=== PATIENT | female | born 1995 | race Caucasian/White ===

== ENCOUNTER 2016-07-25 04:17 | Emergency (ER) | payer BC, OTHER ==
[2016-07-25 04:28] VITALS: BP 129/94
[2016-07-25] MEDS ORDERED: Acetaminophen/oxyCODONE 325-5 MG Tab PO ONE (04:46)
--- NOTE | 2016-07-25 04:57 | EDM.PDOC ---
ED HPI GENERAL MEDICAL PROBLEM - General Chief Complaint: Lower Extremity Injury/Pain Stated Complaint: RIGHT ANKLE HURTS Time Seen by Provider: 07/25/16 04:38 Source of Information: Reports: Patient History Limitations: Reports: No Limitations - History of Present Illness INITIAL COMMENTS - FREE TEXT/NARRATIVE: This is a 21-year-old female. Onset several days ago with right Achilles tendon soreness. It has progressed slowly until this evening it is markedly painful and she cannot move her foot without having increased pain. Apparently this has happened to her in the past but never this severe. She denies any history of trauma to the Achilles tendon she's not been wearing high heels boots that lace up or anything that touches her Achilles tendon. Due to the pain she comes to the ER. She does have some cat scratches on the anterior part of her ankle but that just happened today and this has been hurting for the last several days. No fever no chills no other acute symptoms. The patient denies eating alot of protein or meat but she mccurdy eat alot of sugar that has affected her in the past with tendonitis. Right Ankle Pain Score (Numeric/FACES): 9 - Related Data Allergies Allergy/AdvReac Type Severity Reaction Status Date / Time No Known Allergies Allergy Verified 07/25/16 04:23 Home Meds: Home Meds Acetaminophen/oxyCODONE [Percocet 325-5 MG] 1 tab PO Q8H PRN #15 tablet [Rx] Escitalopram Oxalate 10 mg PO DAILY 07/25/16 [History] Norelgestromin/Ethin.Estradiol [Xulane Patch] 1 patch TRDERM WEEKLY 07/25/16 [ History] Past Medical History - Past Health History Medical/Surgical History: Denies Medical/Surgical History Psychiatric History: Reports: Anxiety, Depression - Past Surgical History HEENT Surgical History: Reports: Myringotomy w Tube(s), Tonsillectomy Social & Family History - Tobacco Use Smoking Status *Q: Never Smoker - Recreational Drug Use Recreational Drug Use: No Review of Systems - Review of Systems Review Of Systems: See Below Constitutional: Denies: Chills, Fever Eyes: Reports: No Symptoms Ears: Reports: No Symptoms Nose: Reports: No Symptoms Mouth/Throat: Reports: No Symptoms Respiratory: Reports: No Symptoms Cardiovascular: Reports: No Symptoms GI/Abdominal: Reports: No Symptoms Genitourinary: Reports: No Symptoms Musculoskeletal: Reports: Other (As per history of present illness) Neurological: Reports: No Symptoms Psychiatric: Reports: No Symptoms ED EXAM, GENERAL - Physical Exam Exam: See Below Exam Limited By: No Limitations General Appearance: Alert, WD/WN, Moderate Distress Eye Exam: Bilateral Eye: Normal Inspection Ears: Normal External Exam Nose: Normal Inspection Throat/Mouth: Normal Inspection, Normal Lips, Normal Voice Head: Normocephalic Neck: Supple Respiratory/Chest: No Respiratory Distress Back Exam: Full Range of Motion Extremities: Other (Her right lower extremity shows some erythema over the Achilles tendon it is very tender to palpation there is no rupture of the tendon there is no defect noted, the cat scratches from the anterior and mildly lateral portion of the ankle but these occurred today where just been hurting for several days, neurovascular is intact in her toes) Neurological: Alert, Oriented Psychiatric: Anxious Skin Exam: Warm, Dry ED TRAUMA EXTREMITY PROCEDURES - Splinting Right Lower Extremity Splint Site: Right ankle Pre-procedure NV status: Normal Post-procedure NV status: Normal Splint Material: Other (4 inch Jarod was placed to the right ankle and foot) Applied & Form Fitted By: Provider Provider Post-Splint Application NV Check: NV Status Normal Complications: No Course - Vital Signs Last Recorded V/S: Last Vital Signs Temp 98.8 F 07/25/16 04:26 Pulse 85 07/25/16 04:26 Resp 18 07/25/16 04:26 BP 129/94 H 07/25/16 04:26 Pulse Ox 98 07/25/16 04:26 - Orders/Labs/Meds Labs: Laboratory Tests 07/25/16 07/25/16 Range/Units 04:59 04:59 WBC 10.35 H (3.98-10.04) K/mm3 RBC 4.30 (3.98-5.22) M/mm3 Hgb 12.7 (11.2-15.7) gm/L Hct 38.1 (34.1-44.9) % MCV 88.6 (79.4-94.8) fl MCH 29.5 (25.6-32.2) pg MCHC 33.3 (32.2-35.5) g/dl RDW Std Deviation 39.3 (36.4-46.3) fL Plt Count 196 (182-369) K/mm3 MPV 12.1 (9.4-12.3) fl Neut % (Auto) 59.1 (34.0-71.1) % Lymph % (Auto) 33.3 (19.3-51.7) % [place] % (Auto) 6.3 (4.7-12.5) % Eos % (Auto) 0.9 (0.7-5.8) Baso % (Auto) 0.3 (0.1-1.2) % Neut # (Auto) 6.12 (1.56-6.13) K/mm3 Lymph # (Auto) 3.45 (1.18-3.74) K/mm3 [place] # (Auto) 0.65 H (0.24-0.36) K/mm3 Eos # (Auto) 0.09 (0.04-0.36) K/mm3 Baso # (Auto) 0.03 (0.01-0.08) K/mm3 Sodium 140 (136-145) mEq/L Potassium 3.3 L (3.5-5.1) mEq/L Chloride 104 (98-107) mEq/L Carbon Dioxide 25 (21-32) mEq/L Anion Gap 14.3 (5-15) BUN 10 (7-18) mg/dL Creatinine 0.7 (0.55-1.02) mg/dL Est Cr Clr Drug Dosing 109.24 mL/min Estimated GFR (MDRD) > 60 (>60) mL/min BUN/Creatinine Ratio 14.3 (14-18) Glucose 93 (74-106) mg/dL Uric Acid 3.0 (2.6-6.0) mg/dL Calcium 8.1 L (8.5-10.1) mg/dL Total Bilirubin 0.3 (0.2-1.0) mg/dL AST 17 (15-37) U/L ALT 19 (14-59) U/L Alkaline Phosphatase 67 (46-116) U/L Total Protein 6.8 (6.4-8.2) g/dl Albumin 3.5 (3.4-5.0) g/dl Globulin 3.3 gm/dL Albumin/Globulin Ratio 1.1 (1-2) Meds: Medications Discontinued Medications Generic Name Dose Route Start Last Admin Trade Name Freq PRN Reason Stop Dose Admin Oxycodone/Acetaminophen 1 tab 07/25/16 04:46 07/25/16 04:51 Percocet 325-5 Mg PO 07/25/16 04:47 1 tab ONETIME ONE Administration - Re-Assessments/Exams Free Text/Narrative Re-Assessment/Exam: 07/25/16 06:08 I spoke to the patient regarding her test results. I do not know why she is having this pain in her Achilles tendon is that it is inflamed. Departure - Departure Time of Disposition: 06:09 Disposition: Home, Self-Care 01 Condition: good Clinical Impression: Right Achilles tendinitis - Discharge Information Prescriptions: Acetaminophen/oxyCODONE [Percocet 325-5 MG] 1 tab PO Q8H PRN #15 tablet PRN Reason: Pain Referrals: Resmha Little BLEACHER LARD [Primary Care Provider] - Forms: ED Department Discharge Additional Instructions: Try to keep the right foot elevated on a pillow, use ice or heat to the Achilles tendon to help with the soreness, take the medicine as needed for pain , if this continues to worsen or the redness over the tendon begins to spread further you need to follow up with your primary care provider, use the crutches to try to stay off the right foot as much as possible, use the Jarod wrap as needed for comfort, return to the ER if needed
[2016-07-25] MEDS ORDERED: Ondansetron 4 MG Tab.DIS PO ONE (06:23)
== END 2016-07-25 06:42 | disposition home or self-care (01) ==
LOC: JD.ED 04:17
DX: M76.61 Achilles tendinitis, right leg (principal); F41.9 Anxiety disorder, unspecified; F32.9 Major depressive disorder, single episode, unspecified; Z96.22 Myringotomy tube(s) status; Z98.890 Other specified postprocedural states; Z79.899 Other long term (current) drug therapy
CPT/HCPCS: 36415; 80053; 84550; 85025; 99284; A9270; 99283

== ENCOUNTER 2018-06-05 21:04 | Emergency (ER) | payer BC ==
[2018-06-05] MEDS ORDERED: Sodium Chloride 0.9% 10 ML Syringe FLUSH PRN (21:22)
[2018-06-05] MEDS ORDERED: HYDROmorphone 1 MG/ML Syringe IVPUSH STA (21:22)
[2018-06-05] MEDS ORDERED: Ondansetron 4 MG/2 ML SDV IVPUSH ONE (21:22)
[2018-06-05] MEDS ORDERED: Sodium Chloride 0.9% 1,000 ML IV SCH (21:30)
--- NOTE | 2018-06-05 21:30 | EDM.PDOC ---
ED HPI GENERAL MEDICAL PROBLEM - General Chief Complaint: Flank Pain Stated Complaint: KIDNEY PAIN AND SICK TO STOMACH Time Seen by Provider: 06/05/18 21:14 Source of Information: Reports: Patient, RN Notes Reviewed History Limitations: Reports: No Limitations - History of Present Illness INITIAL COMMENTS - FREE TEXT/NARRATIVE: Patient is a 23-year-old female who presents to the ED for the evaluation of sudden onset right flank pain. She states that approximately around half hour ago she began to develop a right-sided pain. She states that the pain is stabbing and sharp and sometimes feel as if it is squeezing. She notes this to come and go in waves. She would put the pain at 9 out of 10 when it is at its worst. And 2 out of 10 when it is not present. She denies any fever/chills but does admit to nausea. She states that up until the pain started she felt well otherwise. She herself has never had any pain like this, however her mother has had multiple kidney stones, and a younger brother has also had issues with kidney stones. She states that she is not at this time. She also states it is hard to find a comfortable position to sit in. Right Flank Pain Score (Numeric/FACES): 9 - Related Data Allergies Allergy/AdvReac Type Severity Reaction Status Date / Time No Known Allergies Allergy Verified 07/25/16 04:23 Home Meds: Home Meds Escitalopram Oxalate 10 mg PO DAILY 07/25/16 [History] Past Medical History - Past Health History Medical/Surgical History: Denies Medical/Surgical History Psychiatric History: Reports: Anxiety, Depression - Past Surgical History HEENT Surgical History: Reports: Myringotomy w Tube(s), Tonsillectomy Social & Family History - Tobacco Use Smoking Status *Q: Never Smoker - Caffeine Use Caffeine Use: Reports: Coffee, Energy Drinks, Soda - Recreational Drug Use Recreational Drug Use: No ED ROS GENERAL - Review of Systems Review Of Systems: See Below Constitutional: Denies: Fever, Chills HEENT: Reports: No Symptoms Respiratory: Reports: No Symptoms Cardiovascular: Reports: No Symptoms Endocrine: Reports: No Symptoms GI/Abdominal: Reports: No Symptoms : Reports: No Symptoms, Flank Pain (right). Denies: Discharge, Dysuria, Frequency, Urgency Musculoskeletal: Reports: No Symptoms Skin: Reports: No Symptoms Neurological: Reports: No Symptoms Psychiatric: Reports: No Symptoms Hematologic/Lymphatic: Reports: No Symptoms Immunologic: Reports: No Symptoms ED EXAM, RENAL/ - Physical Exam Exam: See Below Exam Limited By: No Limitations General Appearance: Alert, WD/WN, No Apparent Distress Eye Exam: Bilateral Eye: Normal Inspection Ears: Normal External Exam Nose: Normal Inspection Throat/Mouth: Normal Inspection, Normal Lips, Normal Teeth, Normal Oropharynx, Normal Voice, No Airway Compromise Head: Atraumatic, Normocephalic Neck: Normal Inspection Respiratory/Chest: No Respiratory Distress, Lungs Clear, Normal Breath Sounds, No Accessory Muscle Use, Chest Non-Tender Cardiovascular: Normal Peripheral Pulses, Regular Rate, Rhythm, No Murmur GI/Abdominal: Normal Bowel Sounds, Soft, Non-Tender, No Distention, No Mass Back Exam: Normal Inspection, Full Range of Motion. No: CVA Tenderness (L), CVA Tenderness (R) Extremities: Normal Inspection, Normal Capillary Refill Neurological: Alert, Oriented, Normal Cognition, No Motor/Sensory Deficits Psychiatric: Normal Affect, Normal Mood Skin Exam: Warm, Dry, Intact, Normal Color, No Rash Course - Vital Signs Last Recorded V/S: Last Vital Signs Temp 98.5 F 06/05/18 21:16 Pulse 75 06/05/18 22:55 Resp 16 06/05/18 22:55 BP 123/80 06/05/18 22:55 Pulse Ox 99 06/05/18 22:55 - Orders/Labs/Meds Labs: Laboratory Tests 06/05/18 Range/Units 22:30 Urine Color Yellow (Yellow) Urine Appearance Clear (Clear) Urine pH 6.0 (5.0-8.0) Ur Specific [place] 1.025 (1.005-1.030) Urine Protein Negative (Negative) Urine Glucose (UA) Negative (Negative) Urine Ketones Negative (Negative) Urine Occult Blood Negative (Negative) Urine Nitrite Negative (Negative) Urine Bilirubin Negative (Negative) Urine Urobilinogen 0.2 (0.2-1.0) Ur Leukocyte Esterase 2+ H (Negative) Urine RBC 0-5 (0-5) /hpf Urine WBC 10-20 H (0-5) /hpf Ur Epithelial Cells Not Reportable Ur Squamous Epith Cells 5-10 H (0-5) /hpf Urine Bacteria Moderate H (FEW) /hpf Urine Mucus Moderate H (FEW) /hpf Meds: Medications Discontinued Medications Generic Name Dose Route Start Last Admin Trade Name Jocelin PRN Reason Stop Dose Admin Dicyclomine HCl 20 mg 06/05/18 22:23 06/05/18 22:54 Bentyl PO 06/05/18 22:24 20 mg ONETIME ONE Administration Hydromorphone HCl 1 mg 06/05/18 21:22 06/05/18 21:34 Dilaudid IVPUSH 06/05/18 21:23 0.5 mg ONETIME STA Administration Sodium Chloride 1,000 mls @ 150 mls/hr 06/05/18 21:30 06/05/18 21:33 Normal Saline IV 150 mls/hr ASDIRECTED CATARINA Administration Magnesium Citrate 296 ml 06/05/18 22:23 06/05/18 22:54 Citrate Of Magnesia PO 06/05/18 22:24 296 ml ONETIME ONE Administration Ondansetron HCl 4 mg 06/05/18 21:22 06/05/18 21:32 Zofran IVPUSH 06/05/18 21:23 4 mg ONETIME ONE Administration Sodium Chloride 10 ml 06/05/18 21:22 06/05/18 21:36 Saline Flush FLUSH 10 ml ASDIRECTED PRN Administration Keep Vein Open - Re-Assessments/Exams Free Text/Narrative Re-Assessment/Exam: 06/05/18 21:29 Patient presents to the ED for the evaluation of sudden onset right-sided flank pain. Her clinical presentation is fairly consistent with kidney stone in nature, I have ordered a UA, IV fluids, 1 mg IV Dilaudid, 4 mg IV Zofran, and an abdominal pelvis CT without contrast for further evaluation. 06/05/18 22:[address] is done and reviewed with Dr. Fall. He does not identify any kidney stone on the CT study, however he does comment that she is rather backed up with stool. UA shows trace of leukocyte Estrace, but no blood at this time. We will discharge the patient home with 20 mg Bentyl, and one bottle mag citrate. Departure - Departure Time of Disposition: 22:41 Disposition: Home, Self-Care 01 Condition: Fair Clinical Impression: Constipation Qualifiers: Constipation type: unspecified constipation type Qualified Code(s): K59.00 - Constipation, unspecified - Discharge Information *PRESCRIPTION DRUG MONITORING PROGRAM REVIEWED*: No *COPY OF PRESCRIPTION DRUG MONITORING REPORT IN PATIENT ANGELO: No Instructions: Constipation, Adult, [id number] Referrals: Reshma Little, [employer] [Primary Care Provider] - Forms: ED Department Discharge Additional Instructions: You have been evaluated in the ED tonight for your sudden onset right flank pain. Your workup was unremarkable for kidney stone at this visit, your CT scan did not demonstrate any sign of kidney stone at this time, however it did demonstrate a large amount of stool in your entire colon. You have been given 20 mg dicyclomine, this should help with the intestinal cramping. You have been provided with one bottle of magnesium citrate, please take this in the morning to promote bowel cleanse and provide some relief from constipation symptoms. Going forward from here, you may want to increase your oral fluid intake and fiber intake, you may also take a stool softener like MiraLAX if you should so choose. Please return to the ED if your symptoms should change or worsen.
[2018-06-05] MEDS ORDERED: Dicyclomine 10 MG Cap PO ONE (22:23)
[2018-06-05] MEDS ORDERED: Magnesium Citrate Solution 296 ML Bottle PO ONE (22:23)
[2018-06-05 23:04] VITALS: BP 123/80
--- NOTE | 2018-06-06 07:23 | CT ---
CT abdomen and pelvis Technique: Multiple axial sections were obtained below the upper left kidney inferiorly through the pubic symphysis. Intravenous and oral contrast was not utilized. Study has been performed as a ureteral stone protocol. Comparison: No prior abdominal imaging. Findings: Kidneys show no abnormal calcifications. No ureteral dilatation or ureteral stone is seen. Noncontrast visualized portions of the liver and spleen are within normal limits. Visualized pancreas is within normal limits. Adrenal glands are seen and appear unremarkable. Aorta shows no aneurysm. No retroperitoneal adenopathy or mesenteric abnormalities are seen. No pelvic mass or adenopathy is noted. Small amount of free fluid is seen within the pelvis which is likely physiologic. Mild increased stool seen throughout the colon. No inflammatory change is seen. Bone window settings were reviewed which appear within normal limits for the patient's age. Impression: 1. Mild increased stool throughout the colon. 2. Small amount of free fluid within the pelvis which is believed to be physiologic. 3. No renal calculi, ureteral dilatation or ureteral stone is seen. 4. No acute abnormality is appreciated on noncontrast CT study of the abdomen and pelvis performed as a ureteral stone protocol. Diagnostic code #2 I agree with preliminary report from [facility], finalized on 06/05/18, 11:40 PM Central Time
== END 2018-06-05 23:01 | disposition home or self-care (01) ==
LOC: JD.ED 21:04
DX: K59.00 Constipation, unspecified (principal); F41.9 Anxiety disorder, unspecified; F32.9 Major depressive disorder, single episode, unspecified; Z79.899 Other long term (current) drug therapy
CPT/HCPCS: 74176; 81001; 96361; 96374; 96375; 99284; A9270; J1170; J2405; J7040

== ENCOUNTER 2019-04-11 13:49 | Emergency (ER) | payer BC ==
--- NOTE | 2019-04-11 15:43 | EDM.PDOC ---
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 This started this afternoon at 1330. She is G1 16 weeks gestation with a LNMP of December 26. She had an US at 10 weeks with no problems. She started hurting at work. She did not fall or lift anything. She has no fever, chills, cough, congestion, runny nose, dysuria, hematuria or vaginal bleeding. 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: Other (see below) Other Treatments MICA PLATE LAYER: none Lower Pelvic Pain Score (Numeric/FACES): 2 - Related Data Allergies Allergy/AdvReac Type Severity Reaction Status Date / Time No Known Allergies Allergy Verified 08/30/18 18:50 Home Meds: Home Meds Pnv No.95/Ferrous Fum/Folic AC [ Caplet] 1 tab PO DAILY 04/11/19 [ History] Past Medical History - Past Health History Medical/Surgical History: Denies Medical/Surgical History HEENT History: Reports: None Cardiovascular History: Reports: None Respiratory History: Reports: None Gastrointestinal History: Reports: None Genitourinary History: Reports: None 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: Other (See Below) Other 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 BORING MACHINE OPERATOR FOR METAL History: cysts on overies in past Musculoskeletal History: Reports: None Neurological History: Reports: None Psychiatric History: Reports: Anxiety, Depression Endocrine/Metabolic History: Reports: None Immunologic History: Reports: None Oncologic (Cancer) History: Reports: None Dermatologic History: Reports: None - Infectious Disease History Infectious Disease History: Reports: None - Past Surgical History Head Surgeries/Procedures: Reports: None HEENT Surgical History: Reports: Myringotomy w Tube(s), Tonsillectomy GI Surgical History: Reports: None Oncologic Surgical History: Reports: None Social & Family History - Family History Family Medical History: Noncontributory - Tobacco Use Smoking Status *Q: Never Smoker - Caffeine Use Caffeine Use: Reports: Soda, Tea - Recreational Drug Use Recreational Drug Use: No ED ROS GENERAL - Review of Systems Review Of Systems: See Below Constitutional: Reports: No Symptoms HEENT: Reports: No Symptoms Respiratory: Reports: No Symptoms Cardiovascular: Reports: No Symptoms Endocrine: Reports: No Symptoms GI/Abdominal: Reports: Abdominal Pain. Denies: Nausea, Vomiting : Reports: No Symptoms Musculoskeletal: Reports: No Symptoms ED EXAM, GI/ABD - Physical Exam Exam: See Below Exam Limited By: No Limitations General Appearance: Alert, No Apparent Distress Ears: Normal External Exam Nose: Normal Inspection Throat/Mouth: Normal Inspection Head: Atraumatic, Normocephalic Neck: Normal Inspection Respiratory/Chest: No Respiratory Distress, Lungs Clear, Normal Breath Sounds Cardiovascular: Regular Rate, Rhythm, No Edema, No Murmur GI/Abdominal Exam: Soft, No Organomegaly, No Mass, Tender (Mild lower abdominal pain and gravid uterus between the pelvis and umbilicus) Course - Vital Signs Last Recorded V/S: Last Vital Signs Temp 99.2 F 04/11/19 14:16 Pulse 83 04/11/19 14:16 Resp 20 04/11/19 14:16 BP 116/77 04/11/19 14:16 Pulse Ox 99 04/11/19 14:16 - Orders/Labs/Meds Labs: Laboratory Tests 04/11/19 04/11/19 04/11/19 Range/Units 15:02 15:02 15:50 WBC 8.02 (3.98-10.04) K/mm3 RBC 4.00 (3.98-5.22) M/mm3 Hgb 11.8 D (11.2-15.7) gm/dl Hct 35.7 (34.1-44.9) % MCV 89.3 (79.4-94.8) fl MCH 29.5 (25.6-32.2) pg MCHC 33.1 (32.2-35.5) g/dl RDW Std Deviation 41.7 (36.4-46.3) fL Plt Count 223 (182-369) K/mm3 MPV 11.5 (9.4-12.3) fl Neut % (Auto) 63.2 (34.0-71.1) % Lymph % (Auto) 29.1 (19.3-51.7) % [place] % (Auto) 6.7 (4.7-12.5) % Eos % (Auto) 0.4 L (0.7-5.8) Baso % (Auto) 0.1 (0.1-1.2) % Neut # (Auto) 5.07 (1.56-6.13) K/mm3 Lymph # (Auto) 2.33 (1.18-3.74) K/mm3 [place] # (Auto) 0.54 H (0.24-0.36) K/mm3 Eos # (Auto) 0.03 L (0.04-0.36) K/mm3 Baso # (Auto) 0.01 (0.01-0.08) K/mm3 Sodium 137 (136-145) mEq/L Potassium 3.3 L (3.5-5.1) mEq/L Chloride 105 (98-107) mEq/L Carbon Dioxide 21 (21-32) mEq/L Anion Gap 14.3 (5-15) BUN 10 (7-18) mg/dL Creatinine 0.4 L (0.55-1.02) mg/dL Est Cr Clr Drug Dosing 187.98 mL/min Estimated GFR (MDRD) > 60 (>60) mL/min BUN/Creatinine Ratio 25.0 H (14-18) Glucose 102 (74-106) mg/dL Calcium 8.2 L (8.5-10.1) mg/dL Total Bilirubin 0.2 (0.2-1.0) mg/dL AST 57 H (15-37) U/L ALT 59 (14-59) U/L Alkaline Phosphatase 85 (46-116) U/L Total Protein 6.0 L (6.4-8.2) g/dl Albumin 2.7 L (3.4-5.0) g/dl Globulin 3.3 gm/dL Albumin/Globulin Ratio 0.8 L (1-2) Lipase 155 (73-393) U/L Urine Color Yellow (Yellow) Urine Appearance Clear (Clear) Urine pH 7.0 (5.0-8.0) Ur Specific [place] 1.025 (1.005-1.030) Urine Protein Negative (Negative) Urine Glucose (UA) Negative (Negative) Urine Ketones Negative (Negative) Urine Occult Blood Negative (Negative) Urine Nitrite Negative (Negative) Urine Bilirubin Negative (Negative) Urine Urobilinogen 1.0 (0.2-1.0) Ur Leukocyte Esterase 1+ H (Negative) Urine RBC 0-5 (0-5) /hpf Urine WBC 5-10 H (0-5) /hpf Ur Squamous Epith Cells 5-10 H (0-5) /hpf Urine Bacteria Many H (FEW) /hpf Urine Mucus Rare (FEW) /hpf - Re-Assessments/Exams Free Text/Narrative Re-Assessment/Exam: 04/11/19 15:43 I ordered labs, UA and an OB US. 04/11/19 16:49 Her CBC is negative. Her K is a little low at 3.3. Her creatinine is low at 0.4. Her AST is slightly elevated at 57. Her lipase is normal. Her US shows no UTI. Her US shows single intrauterine fetus currently breech in presentation. Dates as noted above. No complicating process is seen by US at this time. 04/11/19 16:57 Heart rate was 142. Measures 16 weeks and 1 day. Departure - Departure Time of Disposition: 17:00 Disposition: Home, Self-Care 01 Condition: Good Clinical Impression: Lower abdominal pain Qualifiers: Weeks of gestation: 16 weeks Qualified Code(s): Z3A.16 - 16 weeks gestation of - Discharge Information *PRESCRIPTION DRUG MONITORING PROGRAM REVIEWED*: Not Applicable *COPY OF PRESCRIPTION DRUG MONITORING REPORT IN PATIENT ANGELO: Not Applicable Referrals: Florecita Becker MD [Primary Care Provider] - 3 Days Forms: ED Department Discharge, ED Return to Work/School Form Additional Instructions: Drink plenty of fluids. Take tylenol for any pain. Follow up with your doctor within the week. Please return if you are worse. Sepsis Event Note - Evaluation Sepsis Screening Result: No Definite Risk - Focused Exam Vital Signs: Vital Signs Temp Pulse Resp BP Pulse Ox 04/11/19 14:16 99.2 F 83 20 116/77 99 Date Exam was Performed: 04/11/19 Time Exam was Performed: 16:57
--- NOTE | 2019-04-11 16:39 | US ---
Obstetrical ultrasound: Multiple real-time images were obtained transabdominally. Comparison: Previous obstetrical ultrasound of 02/27/19. Dates: LMP: LMP given as 12/26/18, LYNDA 10/02/19, gestational age 15 weeks 1 day Current ultrasound: LYNDA 09/25/19, gestational age 16 weeks 1 day Earliest ultrasound (02/27/19): LYNDA 09/28/19, gestational age 15 weeks 5 days presentation: Breech Placenta: Anterior with no findings of placenta previa or placental abruption Amniotic fluid: TASNEEM 11.7 cm Measurements: BPD: 3.23 cm - 16 weeks 1 day Head circumference: 12.07 cm - 16 weeks 1 day Abdominal circumference: 10.68 cm - 16 weeks 5 days Femur length: 1.80 cm - 15 weeks 3 days Estimated weight: 142 g (0 lbs. 5 oz.), estimated weight at the 32nd percentile for age by current ultrasound Heart rate: 142 bpm Cervical length: 4.0 cm Impression: 1. Single intrauterine fetus currently breech in presentation. Dates as noted above. 2. No complicating process is seen by ultrasound at this time. Diagnostic code #1 This report was dictated in [place] Standard Time
[2019-04-11 17:17] VITALS: BP 107/62; PULSE 73
== END 2019-04-11 17:15 | disposition home or self-care (01) ==
LOC: JD.ED 13:49
DX: O99.89 Other specified diseases and conditions complicating pregnancy, childbirth and the puerperium (principal); R10.2 Pelvic and perineal pain; Z3A.16 16 weeks gestation of pregnancy
CPT/HCPCS: 36415; 76815; 76815-26; 80053; 81001; 83690; 85025; 99282; 99284-25

== ENCOUNTER 2019-09-11 13:22 | Inpatient (IN) | payer BC ==
[2019-09-11] MEDS ORDERED: Ondansetron 4 MG/2 ML SDV IVPUSH PRN (14:11)
[2019-09-11] MEDS ORDERED: Calcium Carbonate 500 MG Tab.Chew PO PRN (14:11)
[2019-09-11] MEDS ORDERED: Sodium Chloride 0.9% 10 ML Syringe FLUSH PRN (14:11)
[2019-09-11] MEDS ORDERED: Nalbuphine 10 MG/ML Syringe IVPUSH PRN (14:11)
[2019-09-11] MEDS ORDERED: Acetaminophen 325 MG Tab PO PRN (14:11)
[2019-09-11] MEDS ORDERED: Oxytocin/Lactated Ringers 10 UNIT/1,000 ML BAG IV SCH ×2 (14:15)
[2019-09-11] MEDS ORDERED: Lactated Ringers 1,000 ML IV SCH (14:15)
--- NOTE | 2019-09-11 18:58 | PCM.LDHP ---
L&D History of Present Illness - General Date of Service: 09/11/19 Admit Problem/Dx: Patient Status Order with Admit Dx/Problem 09/11/19 14:11 Patient Status [ADT] Routine 09/11/19 14:27 Patient Status [ADT] Stat Admission Diagnosis/Problem Admission Diagnosis/Problem 09/11/19 18:49 Preeclampsia Early labor Source of Information: Patient History Limitations: Reports: No Limitations - History of Present Illness Introduction:: 24 year old at 37 weeks gestation today. She was seen in the clinic and reported that she was having painful tightenings last night for about an hour and then they seemed to settle, but didn't sleep well last night. She has had increased allergy symptoms with nasal congestion, sinus pressure. She had taken benadryl last night for the allergy symptoms. Her bp in the clinic today was elevated, 143/96, which is new for her. She had also noticed increased swelling in her feet. Denies headache, some nausea, but no RUQ pain. When I examined her in the clinic, she was 5-6 cm dilated, 80% effaced and bulging membranes with vertex presentation. I sent her over to Labor and Delivery for monitoring. She has had mild anemia with her , has been treated for bacterial vaginosis. She has declined Tdap and Influenza vaccine with her and does NOT plan to immunize her baby. labs show blood type A+ with negative antibody screen, pap was wnl, infectious disease screening tests negative. 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 MSAFP test for NTD was negative. 1 hour glucola was wnl. GBS swab was negative last week. - Related Data Allergies/Adverse Reactions: Allergies Allergy/AdvReac Type Severity Reaction Status Date / Time No Known Allergies Allergy Verified 09/11/19 15:39 Home Medications: Home Meds Pnv No.95/Ferrous Fum/Folic AC [ Caplet] 1 tab PO DAILY 04/11/19 [History] Ferrous Sulfate [Iron] 325 mg PO DAILY 09/11/19 [History] Melatonin 10 mg PO QPM PRN 09/11/19 [History] Past Medical History - Past Health History Medical/Surgical History: Denies Medical/Surgical History HEENT History: Reports: None Cardiovascular History: Reports: None Respiratory History: Reports: None Gastrointestinal History: Reports: None Genitourinary History: Reports: None 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 (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) Other OB/BYN History: cysts on overies in past Musculoskeletal History: Reports: None Neurological History: Reports: None Psychiatric History: Reports: Anxiety, Depression Other Psychiatric History: was on lexapro pre- Endocrine/Metabolic History: Reports: None Hematologic History: Reports: Anemia Immunologic History: Reports: None Oncologic (Cancer) History: Reports: None Dermatologic History: Reports: None - Infectious Disease History Infectious Disease History: Reports: None - Past Surgical History Head Surgeries/Procedures: Reports: None HEENT Surgical History: Reports: Myringotomy w Tube(s), Tonsillectomy GI Surgical History: Reports: None Oncologic Surgical History: Reports: None Social & Family History - Family History Family Medical History: Noncontributory - Tobacco Use Smoking Status *Q: Never Smoker Second Hand Smoke Exposure: No - Caffeine Use Caffeine Use: Reports: None - Recreational Drug Use Recreational Drug Use: No H&P Review of Systems - Review of Systems: Review Of Systems: See Below General: Reports: No Symptoms HEENT: Reports: Post Nasal Drip, Sinus Congestion Pulmonary: Reports: No Symptoms Cardiovascular: Reports: No Symptoms Gastrointestinal: Reports: No Symptoms Genitourinary: Reports: No Symptoms Musculoskeletal: Reports: No Symptoms Skin: Reports: No Symptoms Psychiatric: Reports: Anxiety Neurological: Reports: No Symptoms Hematologic/Lymphatic: Reports: No Symptoms Immunologic: Reports: Seasonal Allergy L&D Exam - Exam Exam: See Below - Vital Signs Vital Signs: Last Vital Signs Temp 36.6 C 09/11/19 14:11 Pulse 88 09/11/19 14:11 Resp 14 09/11/19 14:11 BP 141/93 H 09/11/19 14:11 Pulse Ox 94 L 09/11/19 14:11 Weight: 68.175 kg - OB Specific Contraction Duration (sec): 40 secs to 5 minutes Contraction Frequency (min): Irregular Contraction Intensity: Moderate Movement: Active Heart Tones: Present Heart Tones per Min: 150 Heart Rate (FHR) Variability: Moderate (6-25 bmp) Estimated Weight: 7 lbs - Maher Score Maher Score Cervix Position: Midposition Maher Score Consistency: Soft Maher Score Effacement: >80% Maher Score Dilation: > 5 cm Maher Score Infant's Station: -1 ,0 Maher Score Total: 11 - Exam General: Alert, Oriented, Mild Distress HEENT: Conjunctiva Clear Neck: Supple, Trachea Midline Lungs: Normal Respiratory Effort Cardiovascular: Regular Rate, Regular Rhythm GI/Abdominal Exam: Normal Bowel Sounds Rectal Exam: Deferred Genitourinary: Cervical dilitation, Enlarged uterus Back Exam: Normal Inspection, Full Range of Motion Extremities: Normal Inspection, Pedal Edema (1+ edema in feet) Skin: Warm, Dry, Intact Psychiatric: Alert, Anxious - Patient Data Lab Results Last 24 hrs: Laboratory Results - last 24 hr 09/11/19 09/11/19 09/11/19 Range/Units 14:28 14:28 14:44 WBC 11.49 H (3.98-10.04) K/mm3 RBC 4.24 (3.98-5.22) M/mm3 Hgb 12.4 (11.2-15.7) gm/dl Hct 37.9 (34.1-44.9) % MCV 89.4 (79.4-94.8) fl MCH 29.2 (25.6-32.2) pg MCHC 32.7 (32.2-35.5) g/dl RDW Std Deviation 45.7 (36.4-46.3) fL Plt Count 165 L (182-369) K/mm3 Neut % (Auto) 78.9 H (34.0-71.1) % Lymph % (Auto) 11.6 L (19.3-51.7) % [place] % (Auto) 8.4 (4.7-12.5) % Eos % (Auto) 0.1 L (0.7-5.8) Baso % (Auto) 0.3 (0.1-1.2) % Neut # (Auto) 9.08 H (1.56-6.13) K/mm3 Lymph # (Auto) 1.33 (1.18-3.74) K/mm3 [place] # (Auto) 0.96 H (0.24-0.36) K/mm3 Eos # (Auto) 0.01 L (0.04-0.36) K/mm3 Baso # (Auto) 0.03 (0.01-0.08) K/mm3 Manual Slide Review Abnormal smear Sodium 136 (136-145) mEq/L Potassium 4.0 (3.5-5.1) mEq/L Chloride 103 (98-107) mEq/L Carbon Dioxide 21 (21-32) mEq/L Anion Gap 16.0 H (5-15) BUN 8 (7-18) mg/dL Creatinine 0.6 (0.55-1.02) mg/dL Est Cr Clr Drug Dosing TNP Estimated GFR (MDRD) > 60 (>60) mL/min BUN/Creatinine Ratio 13.3 L (14-18) Glucose 68 L (74-106) mg/dL Calcium 9.3 (8.5-10.1) mg/dL Total Bilirubin 0.3 (0.2-1.0) mg/dL AST 18 (15-37) U/L ALT 17 (14-59) U/L Alkaline Phosphatase 210 H (46-116) U/L Total Protein 6.8 (6.4-8.2) g/dl Albumin 2.6 L (3.4-5.0) g/dl Globulin 4.2 gm/dL Albumin/Globulin Ratio 0.6 L (1-2) Ur Random Creatinine (30.0-125.0) mg/dL U Random Total Protein (0.0-11.8) mg/dL Protein/Creatinin Ratio (0-149) mg/g COVID-19 (LIDIA) Negative (NEGATIVE) 09/11/19 Range/Units 16:05 WBC (3.98-10.04) K/mm3 RBC (3.98-5.22) M/mm3 Hgb (11.2-15.7) gm/dl Hct (34.1-44.9) % MCV (79.4-94.8) fl MCH (25.6-32.2) pg MCHC (32.2-35.5) g/dl RDW Std Deviation (36.4-46.3) fL Plt Count (182-369) K/mm3 Neut % (Auto) (34.0-71.1) % Lymph % (Auto) (19.3-51.7) % [place] % (Auto) (4.7-12.5) % Eos % (Auto) (0.7-5.8) Baso % (Auto) (0.1-1.2) % Neut # (Auto) (1.56-6.13) K/mm3 Lymph # (Auto) (1.18-3.74) K/mm3 [place] # (Auto) (0.24-0.36) K/mm3 Eos # (Auto) (0.04-0.36) K/mm3 Baso # (Auto) (0.01-0.08) K/mm3 Manual Slide Review Sodium (136-145) mEq/L Potassium (3.5-5.1) mEq/L Chloride (98-107) mEq/L Carbon Dioxide (21-32) mEq/L Anion Gap (5-15) BUN (7-18) mg/dL Creatinine (0.55-1.02) mg/dL Est Cr Clr Drug Dosing Estimated GFR (MDRD) (>60) mL/min BUN/Creatinine Ratio (14-18) Glucose (74-106) mg/dL Calcium (8.5-10.1) mg/dL Total Bilirubin (0.2-1.0) mg/dL AST (15-37) U/L ALT (14-59) U/L Alkaline Phosphatase (46-116) U/L Total Protein (6.4-8.2) g/dl Albumin (3.4-5.0) g/dl Globulin gm/dL Albumin/Globulin Ratio (1-2) Ur Random Creatinine 113.3 (30.0-125.0) mg/dL U Random Total Protein 154.1 H (0.0-11.8) mg/dL Protein/Creatinin Ratio 1360.1 H (0-149) mg/g COVID-19 (LIDIA) (NEGATIVE) Result Diagrams: 09/11/19 14:28 09/11/19 14:28 - Problem List (1) 37 weeks gestation of SNOMED Code(s): 69492422 ICD Code: Z3A.37 - 37 WEEKS GESTATION OF Status: Acute Current Visit: Yes (2) Preeclampsia SNOMED Code(s): 562738576 ICD Code: O14.90 - UNSPECIFIED PRE-ECLAMPSIA, UNSPECIFIED TRIMESTER Status: Acute Current Visit: Yes (3) Environmental allergies SNOMED Code(s): 234338267 ICD Code: Z91.09 - OTH ALLERGY STATUS, OTH THAN TO DRUGS AND BIOLG SUBSTANCES Status: Acute Current Visit: Yes Problem List Initiated/Reviewed/Updated: Yes Orders Last 24hrs: Active Orders 24 hr Category Date Time Status Patient Status [ADT] Stat ADT 09/11/19 14:27 Active Activity as Tolerated [RC] PFP Care 09/11/19 14:11 Active Communication Order [RC] ASDIRECTED Care 09/11/19 14:11 Active Heart Tones [RC] ASDIRECTED Care 09/11/19 14:12 Active Notify Provider [RC] PFP Care 09/11/19 14:11 Active Notify Provider [RC] PRN Care 09/11/19 14:11 Active Peripheral IV Care [RC] . DIRECTED Care 09/11/19 14:12 Active Urinary Catheter Assessment [RC] ASDIRECTED Care 09/11/19 14:11 Active Vital Signs [RC] PER UNIT ROUTINE Care 09/11/19 14:11 Active Regular Diet [DIET] Diet 09/11/19 Dinner Active RAPID PLASMA REAGIN,RPR [CHEM] Routine Lab 09/11/19 14:28 Received Acetaminophen [Tylenol] Med 09/11/19 14:11 Active 650 mg PO Q4H PRN Calcium Carbonate [Tums] Med 09/11/19 14:11 Active 1,000 mg PO Q2H PRN Lactated Ringers [Ringers, Lactated] 1,000 ml Med 09/11/19 14:15 Active IV ASDIRECTED Lidocaine 1% [Xylocaine 1%] Med 09/11/19 19:00 Once 50 ml INJECT ONETIME ONE Nalbuphine [Nubain] Med 09/11/19 14:11 Active 10 mg IVPUSH Q2H PRN Ondansetron [Zofran] Med 09/11/19 14:11 Active 4 mg IVPUSH Q4H PRN Oxytocin/Lactated Ringers [Pitocin in LR 10 Units/1,000 Med 09/11/19 14:15 Active ML] 10 unit in 1,000 ml IV .CONTINUOUS Oxytocin/Lactated Ringers [Pitocin in LR 10 Units/1,000 Med 09/11/19 14:15 Active ML] 10 unit in 1,000 ml IV TITRATE Sodium Chloride 0.9% [Saline Flush] Med 09/11/19 14:11 Active 10 ml FLUSH ASDIRECTED PRN Electronic Heart Tones Ext w TOCO [WOMSER] Oth 09/11/19 14:11 Ordered Routine Electronic Heart Tones Internal [WOMSER] Per Unit Oth 09/11/19 14:11 Ordered Routine Peripheral IV Insertion Adult [OM.PC] Routine Oth 09/11/19 14:11 Ordered Resuscitation Status Routine Resus Stat 09/11/19 14:11 Ordered Medication Orders Acetaminophen (Tylenol) 650 mg PO Q4H PRN PRN Reason: Pain (Mild 1-3) and fever Calcium Carbonate/Glycine (Tums) 1,000 mg PO Q2H PRN PRN Reason: Indigestion Oxytocin/Lactated Ringer's (Pitocin In Lr 10 Units/1,000 Ml) 10 unit in 1,000 mls @ 12 mls/hr IV TITRATE CATARINA; Protocol Oxytocin/Lactated Ringer's (Pitocin In Lr 10 Units/1,000 Ml) 10 unit in 1,000 mls @ 100 mls/hr IV .CONTINUOUS CATARINA; Protocol Lactated Ringer's (Ringers, Lactated) 1,000 mls @ 100 mls/hr IV ASDIRECTED CATARINA Lidocaine HCl (Xylocaine 1%) 50 ml INJECT ONETIME ONE Stop: 09/11/19 19:01 Nalbuphine HCl (Nubain) 10 mg IVPUSH Q2H PRN PRN Reason: Pain Ondansetron HCl (Zofran) 4 mg IVPUSH Q4H PRN PRN Reason: Nausea/Vomiting Sodium Chloride (Saline Flush) 10 ml FLUSH ASDIRECTED PRN PRN Reason: Keep Vein Open Assessment/Plan Comment:: 24 year old primip at 37 weeks, GBS negative, cervix 5 cm dilated in the clinic and elevated bp. Labs today show mild thrombocytopenia, positive urine protein to creatinine ratio and bp has continued to be elevated, 135-150/90's. She has onset of preeclampsia without severe features at this time. She is not having regular contractions, and no change to the cervix in about 6 hours so AROM was performed to augment/induce labor. Clear fluid drained. If contractions do not get into a better pattern, will start pitocin IV . Monitor bp and consider starting magnesium infusion for seizure prophylaxis. She plans to breastfeed. Does not plan to immunize baby and does not want erythromycin eye ointment or vitamin K IM. Will discuss these further.
[2019-09-11] MEDS ORDERED: Lidocaine 1% 50 ML MDV INJECT ONE (19:00)
[2019-09-11] MEDS ORDERED: Witch Hazel Medicated Pads 40/Jar TOP PRN (22:40)
[2019-09-11] MEDS ORDERED: Docusate Sodium 100 MG Cap PO PRN (22:40)
[2019-09-11] MEDS ORDERED: Benzocaine/Menthol 20%-0.5% Spray 56 GM Canister TOP PRN (22:40)
[2019-09-11] MEDS ORDERED: Hydrocortisone Acetate 25 MG Supp RECTAL PRN (22:40)
--- NOTE | 2019-09-11 22:42 | PCM.DEL ---
L & D Note - General Info Date of Service: 09/11/19 Mother's Due Date: 10/02/19 - Delivery Note Labor: Spontaneous, Augmented by ARM Delivery Outcome: Livebirth Delivery Method: Spontaneous Vaginal Delivery-Single Delivery Mode: Spontaneous Presentation: Left Occiput Anterior (ELOY) Nuchal Cord: None Prep: Povidone-Iodine (Betadine Anesthesia Type: None Amniotic Fluid Description: Clear Episiotomy Type: None Laceration: 2nd Degree Suture type: Vicryl Suture size: 3-0 Placenta: Intact, Spontaneous Cord: 3 Vessels Estimated Blood Loss: 100 Resuscitation Needed: No : Suctioned, Bulb Syringe, Stimulated, Warmed, [place] Used Provider: Florecita Becker Score 1 min: 8 Score 5 min: 9 Delivery Comments (Free Text/Narrative):: 24 year old at 37 weeks gestation today. She was seen in the clinic and reported that she was having painful tightenings last night for about an hour an d then they seemed to settle, but didn't sleep well last night. She has had increased allergy symptoms with nasal congestion, sinus pressure. She had taken benadryl last night for the allergy symptoms. Her bp in the clinic today was elevated, 143/96, which is new for her. She had also noticed increased swelling in her feet. Denies headache, some nausea, but no RUQ pain. When I examined her in the clinic, she was 5-6 cm dilated, 80% effaced and bulging membranes with vertex presentation. I sent her over to Labor and Delivery for monitoring. She has had mild anemia with her , has been treated for bacterial vaginosis. She has declined Tdap and Influenza vaccine with her and does NOT plan to immunize her baby. labs show blood type A+ with negative antibody screen, pap was wnl, infectious disease screening tests negative. 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 MSAFP test for NTD was negative. 1 hour glucola was wnl. GBS swab was negative last week. She was only having very irregular contractions, but were moderate when they did come. She had a few contractions that lasted for 5 minutes. When I checked her at 1845, cervix was still 5-6 cm dilated, 80% effaced, vertex and station -1. Her bp has continued to be elevated, 140-150/90/100 and urine protein to creatinine ratio was positive. Platelets were a bit low but liver enzymes normal. Reflexes normal. AROM was performed to augment labor due to her preeclampsia. Contractions increased after that and she did receive Nubain dose at 2030. She started feeling some pressure about 2100 and she was 9 cm and they called me back in. When I arrived and checked her she was completely dilated. WE got her set up and started pushing at 2130. She did well and head was delivered from ELOY presentation, no nuchal cord. The rest of the baby delivered without problems. Time of delivery was 2143 and baby girl. She was dried and stimulated and she cried immediately. She was placed on mother's abdomen for further drying, suctioning and stimulation. After the cord stopped pulsating, it was clamped and cut and baby was placed skin to skin on mother's chest. Her weight was 7 lb 1 oz, 3200 grams. Placenta delivered spontaneously and there were 3 vessels in the cord. EBL was 100 ml. There was a second degree perineal laceration that was repaired in the usual manner with 3-0 vicryl. Uterus was firm and 2 fingers below U. Both Mom and baby were left in the delivery room in stable condition. Mom plans to breastfeed. Induction Criteria - Augmentation Estimated Pelvis: Reports: Adequate Weight Estimated:: Reports: AGA Estimated Weight if LGA: 3.175 kg Reassuring Monitoring Strip: Yes Absence of Tachy Systole: Yes - General Info Date of Service: 09/11/19 Admission Dx/Problem (Free Text): Patient Status Order with Admit Dx/Problem 09/11/19 14:11 Patient Status [ADT] Routine 09/11/19 14:27 Patient Status [ADT] Stat Admission Diagnosis/Problem Admission Diagnosis/Problem 09/11/19 18:49 Preeclampsia Early labor Functional Status: Reports: Pain Controlled - Review of Systems General: Reports: No Symptoms HEENT: Reports: No Symptoms Pulmonary: Reports: No Symptoms Cardiovascular: Reports: No Symptoms Gastrointestinal: Reports: No Symptoms Genitourinary: Reports: No Symptoms Musculoskeletal: Reports: No Symptoms Skin: Reports: No Symptoms Neurological: Reports: No Symptoms Psychiatric: Reports: No Symptoms - Patient Data Vitals - Most Recent: Last Vital Signs Temp 36.6 C 09/11/19 14:11 Pulse 88 07/20/20 14:11 Resp 14 09/11/19 14:11 BP 141/93 H 09/11/19 14:11 Pulse Ox 94 L 09/11/19 14:11 Weight - Most Recent: 68.175 kg Lab Results Last 24 Hours: Laboratory Results - last 24 hr 09/11/19 09/11/19 09/11/19 Range/Units 14:28 14:28 14:28 WBC 11.49 H (3.98-10.04) K/mm3 RBC 4.24 (3.98-5.22) M/mm3 Hgb 12.4 (11.2-15.7) gm/dl Hct 37.9 (34.1-44.9) % MCV 89.4 (79.4-94.8) fl MCH 29.2 (25.6-32.2) pg MCHC 32.7 (32.2-35.5) g/dl RDW Std Deviation 45.7 (36.4-46.3) fL Plt Count 165 L (182-369) K/mm3 Neut % (Auto) 78.9 H (34.0-71.1) % Lymph % (Auto) 11.6 L (19.3-51.7) % [place] % (Auto) 8.4 (4.7-12.5) % Eos % (Auto) 0.1 L (0.7-5.8) Baso % (Auto) 0.3 (0.1-1.2) % Neut # (Auto) 9.08 H (1.56-6.13) K/mm3 Lymph # (Auto) 1.33 (1.18-3.74) K/mm3 [place] # (Auto) 0.96 H (0.24-0.36) K/mm3 Eos # (Auto) 0.01 L (0.04-0.36) K/mm3 Baso # (Auto) 0.03 (0.01-0.08) K/mm3 Manual Slide Review Abnormal smear Sodium 136 (136-145) mEq/L Potassium 4.0 (3.5-5.1) mEq/L Chloride 103 (98-107) mEq/L Carbon Dioxide 21 (21-32) mEq/L Anion Gap 16.0 H (5-15) BUN 8 (7-18) mg/dL Creatinine 0.6 (0.55-1.02) mg/dL Est Cr Clr Drug Dosing TNP Estimated GFR (MDRD) > 60 (>60) mL/min BUN/Creatinine Ratio 13.3 L (14-18) Glucose 68 L (74-106) mg/dL Calcium 9.3 (8.5-10.1) mg/dL Total Bilirubin 0.3 (0.2-1.0) mg/dL AST 18 (15-37) U/L ALT 17 (14-59) U/L Alkaline Phosphatase 210 H (46-116) U/L Total Protein 6.8 (6.4-8.2) g/dl Albumin 2.6 L (3.4-5.0) g/dl Globulin 4.2 gm/dL Albumin/Globulin Ratio 0.6 L (1-2) Ur Random Creatinine (30.0-125.0) mg/dL U Random Total Protein (0.0-11.8) mg/dL Protein/Creatinin Ratio (0-149) mg/g RPR Non-reactive (NONREACTIVE) COVID-19 (LIDIA) (NEGATIVE) 09/11/19 09/11/19 Range/Units 14:44 16:05 WBC (3.98-10.04) K/mm3 RBC (3.98-5.22) M/mm3 Hgb (11.2-15.7) gm/dl Hct (34.1-44.9) % MCV (79.4-94.8) fl MCH (25.6-32.2) pg MCHC (32.2-35.5) g/dl RDW Std Deviation (36.4-46.3) fL Plt Count (182-369) K/mm3 Neut % (Auto) (34.0-71.1) % Lymph % (Auto) (19.3-51.7) % [place] % (Auto) (4.7-12.5) % Eos % (Auto) (0.7-5.8) Baso % (Auto) (0.1-1.2) % Neut # (Auto) (1.56-6.13) K/mm3 Lymph # (Auto) (1.18-3.74) K/mm3 [place] # (Auto) (0.24-0.36) K/mm3 Eos # (Auto) (0.04-0.36) K/mm3 Baso # (Auto) (0.01-0.08) K/mm3 Manual Slide Review Sodium (136-145) mEq/L Potassium (3.5-5.1) mEq/L Chloride (98-107) mEq/L Carbon Dioxide (21-32) mEq/L Anion Gap (5-15) BUN (7-18) mg/dL Creatinine (0.55-1.02) mg/dL Est Cr Clr Drug Dosing Estimated GFR (MDRD) (>60) mL/min BUN/Creatinine Ratio (14-18) Glucose (74-106) mg/dL Calcium (8.5-10.1) mg/dL Total Bilirubin (0.2-1.0) mg/dL AST (15-37) U/L ALT (14-59) U/L Alkaline Phosphatase (46-116) U/L Total Protein (6.4-8.2) g/dl Albumin (3.4-5.0) g/dl Globulin gm/dL Albumin/Globulin Ratio (1-2) Ur Random Creatinine 113.3 (30.0-125.0) mg/dL U Random Total Protein 154.1 H (0.0-11.8) mg/dL Protein/Creatinin Ratio 1360.1 H (0-149) mg/g RPR (NONREACTIVE) COVID-19 (LIDIA) Negative (NEGATIVE) Med Orders - Current: Current Medications Acetaminophen (Tylenol) 650 mg PO Q4H PRN PRN Reason: Pain (Mild 1-3) and fever Calcium Carbonate/Glycine (Tums) 1,000 mg PO Q2H PRN PRN Reason: Indigestion Oxytocin/Lactated Ringer's (Pitocin In Lr 10 Units/1,000 Ml) 10 unit in 1,000 mls @ 12 mls/hr IV TITRATE CATARINA; Protocol Oxytocin/Lactated Ringer's (Pitocin In Lr 10 Units/1,000 Ml) 10 unit in 1,000 mls @ 100 mls/hr IV .CONTINUOUS CATARINA; Protocol Last Admin: 09/11/19 21:12 Dose: 100 mls/hr Documented by: Lactated Ringer's (Ringers, Lactated) 1,000 mls @ 100 mls/hr IV ASDIRECTED CATARINA Nalbuphine HCl (Nubain) 10 mg IVPUSH Q2H PRN PRN Reason: Pain Last Admin: 09/11/19 20:32 Dose: 10 mg Documented by: Ondansetron HCl (Zofran) 4 mg IVPUSH Q4H PRN PRN Reason: Nausea/Vomiting Sodium Chloride (Saline Flush) 10 ml FLUSH ASDIRECTED PRN PRN Reason: Keep Vein Open Discontinued Medications Lidocaine HCl (Xylocaine 1%) 50 ml INJECT ONETIME ONE Stop: 09/11/19 19:01 Last Admin: 09/11/19 21:52 Dose: 50 ml Documented by: - Exam General: Alert, Oriented, Cooperative, Sedated (She is feeling tired from the Nubain) HEENT: Pupils Equal, Mucous Membr. Moist/[place] Neck: Supple Lungs: Normal Respiratory Effort Cardiovascular: Regular Rate, Regular Rhythm GI/Abdominal Exam: Normal Bowel Sounds, Soft (Female) Exam: Vaginal Bleeding, Other (perineal tear has been repaired) Back Exam: Normal Inspection, Full Range of Motion Extremities: Normal Inspection, No Pedal Edema Skin: Warm, Dry, Intact Wound/Incisions: Healing Well Neurological: No New Focal Deficit Psy/Mental Status: Alert, Normal Affect, Normal Mood - Problem List & Annotations (1) 37 weeks gestation of SNOMED Code(s): 25105315 Code(s): Z3A.37 - 37 WEEKS GESTATION OF Status: Acute Current Visit: Yes (2) Preeclampsia SNOMED Code(s): 052102059 Code(s): O14.90 - UNSPECIFIED PRE-ECLAMPSIA, UNSPECIFIED TRIMESTER Status: Acute Current Visit: Yes (3) Environmental allergies SNOMED Code(s): 351083480 Code(s): Z91.09 - OTH ALLERGY STATUS, OTH THAN TO DRUGS AND BIOLG SUBSTANCES Status: Acute Current Visit: Yes (4) Normal spontaneous vaginal delivery SNOMED Code(s): 94670186, 798827472 Code(s): O80 - ENCOUNTER FOR FULL-TERM UNCOMPLICATED DELIVERY Status: Acute Current Visit: Yes - Problem List Review Problem List Initiated/Reviewed/Updated: Yes - My Orders Last 24 Hours: My Active Orders 09/11/19 14:11 Activity as Tolerated [RC] PFP Communication Order [RC] ASDIRECTED Notify Provider [RC] PFP Notify Provider [RC] PRN Urinary Catheter Assessment [RC] ASDIRECTED Vital Signs [RC] PER UNIT ROUTINE Acetaminophen [Tylenol] 650 mg PO Q4H PRN Calcium Carbonate [Tums] 1,000 mg PO Q2H PRN Nalbuphine [Nubain] 10 mg IVPUSH Q2H PRN Ondansetron [Zofran] 4 mg IVPUSH Q4H PRN Sodium Chloride 0.9% [Saline Flush] 10 ml FLUSH ASDIRECTED PRN Electronic Heart Tones Ext w TOCO [WOMSER] Routine Electronic Heart Tones Internal [WOMSER] Per Unit Routine Peripheral IV Insertion Adult [OM.PC] Routine Resuscitation Status Routine 09/11/19 14:12 Heart Tones [RC] ASDIRECTED Peripheral IV Care [RC] . DIRECTED 09/11/19 14:15 Lactated Ringers [Ringers, Lactated] 1,000 ml IV ASDIRECTED Oxytocin/Lactated Ringers [Pitocin in LR 10 Units/1,000 ML] 10 unit in 1,000 ml IV .CONTINUOUS Oxytocin/Lactated Ringers [Pitocin in LR 10 Units/1,000 ML] 10 unit in 1,000 ml IV TITRATE 09/11/19 14:27 Patient Status [ADT] Stat 09/11/19 Dinner Regular Diet [DIET] 09/11/19 22:21 Patient Status Manage Transfer [TRANSFER] Routine - Assessment Assessment:: at 37 weeks with onset of preeclampsia, delivered after augmentation of labor. with 2nd degree perineal tear. Routine care. Monitor bp for persistent preeclampsia. Mom plans to breastfeed - provide support and education. - Plan Plan:: 24 year old primip at 37 weeks, GBS negative, cervix 5 cm dilated in the clinic and elevated bp. Labs today show mild thrombocytopenia, positive urine protein to creatinine ratio and bp has continued to be elevated, 135-150/90's. She has onset of preeclampsia without severe features at this time. She is not having regular contractions, and no change to the cervix in about 6 hours so AROM was performed to augment/induce labor. Clear fluid drained. If contractions do not get into a better pattern, will start pitocin IV . Monitor bp and consider starting magnesium infusion for seizure prophylaxis. She plans to breastfeed. Does not plan to immunize baby and does not want eryth romycin eye ointment or vitamin K IM. Will discuss these further.
[2019-09-12] MEDS: Ibuprofen 800 MG Tab PO PRN ×2 (03:34→14:00)
[2019-09-12] MEDS: Prenatal Multivitamin with Calcium/Folic Acid/Iron Tab PO SCH (10:02)
[2019-09-12] MEDS ORDERED: Sodium Chloride 0.9% 10 ML Syringe FLUSH PRN (16:08)
[2019-09-12] MEDS ORDERED: Calcium Gluconate 10% 1 GM/10 ML SDV IV PRN (16:08)
[2019-09-12] MEDS ORDERED: Magnesium Sulfate/Water 4 GM in Premix Bag 1 BAG IV ONE (16:08)
[2019-09-12] MEDS: Lactated Ringers 1,000 ML IV SCH (16:36)
[2019-09-12] MEDS: Magnesium Sulfate/Water 40 GM/1,000 ML BAG IV SCH (17:03)
--- NOTE | 2019-09-12 17:40 | PCM.PNPP ---
- General Info Date of Service: 09/12/19 Admission Dx/Problem (Free Text): Patient Status Order with Admit Dx/Problem 09/11/19 14:11 Patient Status [ADT] Routine 09/11/19 14:27 Patient Status [ADT] Stat Admission Diagnosis/Problem Admission Diagnosis/Problem 09/11/19 18:49 Preeclampsia Early labor Subjective Update: Patient was doing well this am. Baby had nursed a couple of times. Bleeding is moderate, no clots. She complains of perineal pain and some cramping, using ibuprofen for relief. This afternoon, nursing called with report that she was complaining of a severe headache that started all of a sudden and her bp was elevated at 180/103. Repeat bp after a few minutes and it was coming down and headache seemed to be resolving. She denies nausea or RUQ pain. Functional Status: Reports: Pain Controlled, Tolerating Diet, Ambulating, Urinating - Review of Systems General: Reports: Fatigue HEENT: Reports: Headaches (sudden onset severe headache), Sinus Congestion Pulmonary: Reports: No Symptoms Cardiovascular: Reports: No Symptoms Gastrointestinal: Reports: No Symptoms Genitourinary: Reports: No Symptoms Musculoskeletal: Reports: No Symptoms Skin: Reports: No Symptoms Neurological: Reports: Headache Psychiatric: Reports: No Symptoms - General Info Date of Service: 09/12/19 - Patient Data Vital Signs - Most Recent: Last Vital Signs Temp 36.6 C 09/12/19 11:06 Pulse 89 09/12/19 11:06 Resp 16 09/12/19 11:06 BP 135/88 09/12/19 11:06 Pulse Ox 98 09/12/19 11:06 Weight - Most Recent: 68.175 kg Lab Results - Last 24 Hours: Laboratory Results - last 24 hr 09/11/19 09/11/19 09/12/19 Range/Units 14:28 16:05 06:00 WBC 12.60 H (3.98-10.04) K/mm3 RBC 4.26 (3.98-5.22) M/mm3 Hgb 12.4 (11.2-15.7) gm/dl Hct 38.3 (34.1-44.9) % MCV 89.9 (79.4-94.8) fl MCH 29.1 (25.6-32.2) pg MCHC 32.4 (32.2-35.5) g/dl RDW Std Deviation 46.8 H (36.4-46.3) fL Plt Count 159 L (182-369) K/mm3 MPV TNP Neut % (Auto) 77.6 H (34.0-71.1) % Lymph % (Auto) 14.1 L (19.3-51.7) % [place] % (Auto) 7.6 (4.7-12.5) % Eos % (Auto) 0.1 L (0.7-5.8) Baso % (Auto) 0.1 (0.1-1.2) % Neut # (Auto) 9.78 H (1.56-6.13) K/mm3 Lymph # (Auto) 1.78 (1.18-3.74) K/mm3 [place] # (Auto) 0.96 H (0.24-0.36) K/mm3 Eos # (Auto) 0.01 L (0.04-0.36) K/mm3 Baso # (Auto) 0.01 (0.01-0.08) K/mm3 Manual Slide Review Abnormal smear Ur Random Creatinine 113.3 (30.0-125.0) mg/dL U Random Total Protein 154.1 H (0.0-11.8) mg/dL Protein/Creatinin Ratio 1360.1 H (0-149) mg/g RPR Non-reactive (NONREACTIVE) 09/12/19 Range/Units 17:15 WBC 11.37 H (3.98-10.04) K/mm3 RBC 4.16 (3.98-5.22) M/mm3 Hgb 12.1 (11.2-15.7) gm/dl Hct 37.5 (34.1-44.9) % MCV 90.1 (79.4-94.8) fl MCH 29.1 (25.6-32.2) pg MCHC 32.3 (32.2-35.5) g/dl RDW Std Deviation 47.0 H (36.4-46.3) fL Plt Count 162 L (182-369) K/mm3 MPV 13.5 H Neut % (Auto) (34.0-71.1) % Lymph % (Auto) (19.3-51.7) % [place] % (Auto) (4.7-12.5) % Eos % (Auto) (0.7-5.8) Baso % (Auto) (0.1-1.2) % Neut # (Auto) (1.56-6.13) K/mm3 Lymph # (Auto) (1.18-3.74) K/mm3 [place] # (Auto) (0.24-0.36) K/mm3 Eos # (Auto) (0.04-0.36) K/mm3 Baso # (Auto) (0.01-0.08) K/mm3 Manual Slide Review Ur Random Creatinine (30.0-125.0) mg/dL U Random Total Protein (0.0-11.8) mg/dL Protein/Creatinin Ratio (0-149) mg/g RPR (NONREACTIVE) Med Orders - Current: Current Medications Benzocaine/Menthol (Dermoplast Pain Relief [place]) 0 gm TOP ASDIRECTED PRN PRN Reason: Perineal Comfort Measure Last Admin: 09/11/19 23:45 Dose: 1 applic Documented by: Calcium Gluconate (Calcium Gluconate) 1 gm IV ASDIRECTED PRN PRN Reason: respiratory distress Docusate Sodium (Colace) 100 mg PO BID PRN PRN Reason: Constipation Hydrocortisone Acetate (Anucort-Hc) 25 mg RECTAL BID PRN PRN Reason: Hemorrhoid pain Oxytocin/Lactated Ringer's (Pitocin In Lr 10 Units/1,000 Ml) 10 unit in 1,000 mls @ 100 mls/hr IV .CONTINUOUS CATARINA; Protocol Last Admin: 09/11/19 21:12 Dose: 100 mls/hr Documented by: Lactated Ringer's (Ringers, Lactated) 1,000 mls @ 75 mls/hr IV ASDIRECTED CATARINA Last Admin: 09/12/19 16:36 Dose: 75 mls/hr Documented by: Magnesium Sulfate (Magnesium Sulfate In Water Premix) 40 gm in 1,000 mls @ 50 mls/hr IV ASDIRECTED CATARINA Last Admin: 09/12/19 17:03 Dose: 50 mls/hr Documented by: Ibuprofen (Motrin) 800 mg PO Q6H PRN PRN Reason: Mild pain or fever Last Admin: 09/12/19 14:00 Dose: 800 mg Documented by: Ondansetron HCl (Zofran) 4 mg IVPUSH Q4H PRN PRN Reason: Nausea/Vomiting Prenat Multivit/Nanofabrication Specialist/Iron/Folic Ac ( Plus Iron) 1 each PO DAILY CATARINA Last Admin: 09/12/19 10:02 Dose: 1 each Documented by: Sodium Chloride (Saline Flush) 10 ml FLUSH ASDIRECTED PRN PRN Reason: Keep Vein Open Withayes Sebastian (Tucks) 1 pad TOP ASDIRECTED PRN PRN Reason: Perineal Comfort Measure Last Admin: 09/11/19 23:45 Dose: 1 pad Documented by: Discontinued Medications Acetaminophen (Tylenol) 650 mg PO Q4H PRN PRN Reason: Pain (Mild 1-3) and fever Calcium Carbonate/Glycine (Tums) 1,000 mg PO Q2H PRN PRN Reason: Indigestion Oxytocin/Lactated Ringer's (Pitocin In Lr 10 Units/1,000 Ml) 10 unit in 1,000 mls @ 12 mls/hr IV TITRATE CATARINA; Protocol Lactated Ringer's (Ringers, Lactated) 1,000 mls @ 100 mls/hr IV ASDIRECTED CATARINA Magnesium Sulfate 4 gm/ Premix 50 mls @ 150 mls/hr IV ONETIME ONE Stop: 09/12/19 16:27 Last Admin: 09/12/19 16:36 Dose: 150 mls/hr Documented by: Lidocaine HCl (Xylocaine 1%) 50 ml INJECT ONETIME ONE Stop: 09/11/19 19:01 Last Admin: 09/11/19 21:52 Dose: 50 ml Documented by: Nalbuphine HCl (Nubain) 10 mg IVPUSH Q2H PRN PRN Reason: Pain Last Admin: 09/11/19 20:32 Dose: 10 mg Documented by: Sodium Chloride (Saline Flush) 10 ml FLUSH ASDIRECTED PRN PRN Reason: Keep Vein Open - Infant Interaction Disposition, : at Bedside Infant Interaction: Holding Infant Feeding: Breastfed ; Nursed Well (sutures from perineal tear intact) Support Person: - Recovery Exam Fundal Tone: Firm Fundal Level: 1 Fingerbreadths Below Umbilicus Fundal Placement: Midline Lochia Amount: Small Lochia Color: Rubra/Red Perineum Description: Other (see below) Other Perinuem Description: second degree laceration with repair Episiotomy/Laceration: Approximated Bladder Status: Voiding Urinary Elimination: Voided - Exam General: Alert, Oriented, Cooperative, Mild Distress HEENT: Pupils Equal, Pupils Reactive, Mucous Membr. Moist/[place] Neck: Supple Lungs: Normal Respiratory Effort Cardiovascular: Regular Rate, Regular Rhythm GI/Abdominal Exam: Normal Bowel Sounds, Soft Extremities: Normal Range of Motion, Pedal Edema Skin: Warm, Dry, Intact Wound/Incisions: Healing Well Neurological: No New Focal Deficit, Other (Patellar Reflexes brisk bilaterally with 1 beat clonus) Psy/Mental Status: Alert, Normal Affect, Normal Mood - Problem List & Annotations (1) 37 weeks gestation of SNOMED Code(s): 83717302 Code(s): Z3A.37 - 37 WEEKS GESTATION OF Status: Acute Current Visit: Yes (2) Preeclampsia SNOMED Code(s): 778594117 Code(s): O14.90 - UNSPECIFIED PRE-ECLAMPSIA, UNSPECIFIED TRIMESTER Status: Acute Current Visit: Yes (3) Environmental allergies SNOMED Code(s): 547680389 Code(s): Z91.09 - OTH ALLERGY STATUS, OTH THAN TO DRUGS AND BIOLG SUBSTANCES Status: Acute Current Visit: Yes (4) Normal spontaneous vaginal delivery SNOMED Code(s): 71362450, 831679052 Code(s): O80 - ENCOUNTER FOR FULL-TERM UNCOMPLICATED DELIVERY Status: Acute Current Visit: Yes - Problem List Review Problem List Initiated/Reviewed/Updated: Yes - My Orders Last 24 Hours: My Active Orders 09/11/19 Dinner Regular Diet [DIET] 09/11/19 22:40 Benzocaine/Menthol [Dermoplast Pain Relief [place]] See Dose Instructions TOP ASDIRECTED PRN Docusate Sodium [Colace] 100 mg PO BID PRN Hydrocortisone Acetate [Anucort-HC] 25 mg RECTAL BID PRN Ibuprofen [Motrin] 800 mg PO Q6H PRN witch Elza [Tucks] 1 pad TOP ASDIRECTED PRN Heat Therapy [OM.PC] PRN 09/11/19 22:40 Patient Status [ADT] Routine Activity as Tolerated [RC] PER UNIT ROUTINE May Shower [RC] ASDIRECTED Notify Provider Vital Signs [RC] ASDIRECTED Up ad Janey [RC] ASDIRECTED Vital Signs [RC] Q4HR Assess Lochia [WOMSER] Per Unit Routine Assess Uterine Involution [WOMSER] Per Unit Routine Breast Pump [WOMSER] Per Unit Routine Medication Administration Instruction [OM.PC] Routine Perineal Care [OM.PC] Per Unit Routine Peripheral IV Discontinue [OM.PC] Routine Sitz Bath [OM.PC] Per Unit Routine 09/12/19 09:00 Vit with Ca/FA/Iron [ Plus Iron] 1 each PO DAILY 09/12/19 16:08 Bedrest [RC] ASDIRECTED Communication Order [RC] ASDIRECTED Notify Provider [RC] ASDIRECTED Oxygen Therapy [RC] PRN Vital Signs [RC] ASDIRECTED Calcium Gluconate 1 gm IV ASDIRECTED PRN Sodium Chloride 0.9% [Saline Flush] 10 ml FLUSH ASDIRECTED PRN Peripheral IV Insertion Adult [OM.PC] Urgent 09/12/19 16:09 Equipment to Bedside [RC] PRN Notify Provider Vital Signs [RC] ASDIRECTED 09/12/19 16:10 Notify Provider Status Change [RC] ASDIRECTED Peripheral IV Care [RC] . DIRECTED 09/12/19 16:13 Intake and Output [RC] Q2HR Seizure Precautions [OM.PC] Per Unit Routine 09/12/19 16:15 Lactated Ringers [Ringers, Lactated] 1,000 ml IV ASDIRECTED Magnesium Sulfate/Water [Magnesium Sulfate in Water Premix] 40 gm in 1,000 ml IV ASDIRECTED Blood Pressure [OM.PC] ASDIRECTED Deep Tendon Reflexes [WOMSER] ASDIRECTED 09/12/19 17:15 COMPREHENSIVE METABOLIC PN,CMP [CHEM] Stat 09/12/19 22:40 Heat Therapy [OM.PC] PRN - Assessment Assessment:: at 37 weeks with onset of preeclampsia, delivered after augmentation of labor. with 2nd degree perineal tear. Routine care. Monitor bp for persistent preeclampsia. Mom plans to breastfeed - provide support and education. 09/12/19 1600: Patient has had increased bp as high as 180/103 and complaints of severe headache. Brisk reflexes. preeclampsia. - seems to be going well, but baby has gone 4 hours between fee dings. She is not sure if she is hearing baby swallow course wnl, continue education - Plan Plan:: Day #1 09/12/19 1600 preeclampsia - elevated bp persists, has had a headache this afternoon with brisk reflexes on exam. Will check CBC and CMP today. Start Magnesium for seizure prevention. Give 4 gram loading bolus and then run 2 grams per hour. Monitor per protocol. Will plan to continue for 24 hours and then d/c and monitor for another 24 hours before discharge. Will monitor bp and plan to start medicine if persists >160/110. - asked CLC to check on her and observe nursing. Continue support and education.
[2019-09-13] MEDS: Lactated Ringers 1,000 ML IV SCH (04:52)
[2019-09-13] MEDS: Prenatal Multivitamin with Calcium/Folic Acid/Iron Tab PO SCH (08:07)
[2019-09-13] MEDS: Magnesium Sulfate/Water 40 GM/1,000 ML BAG IV SCH (11:34)
[2019-09-13] MEDS: Ibuprofen 800 MG Tab PO PRN (11:35)
--- NOTE | 2019-09-13 13:40 | PCM.PNPP ---
- General Info Date of Service: 09/13/19 Admission Dx/Problem (Free Text): Patient Status Order with Admit Dx/Problem 09/11/19 14:11 Patient Status [ADT] Routine 09/11/19 14:27 Patient Status [ADT] Stat Admission Diagnosis/Problem Admission Diagnosis/Problem 09/11/19 18:49 Preeclampsia Early labor Subjective Update: Patient was doing well this am. Baby had nursed a couple of times. Bleeding is moderate, no clots. She complains of perineal pain and some cramping, using ibuprofen for relief. This afternoon, nursing called with report that she was complaining of a severe headache that started all of a sudden and her bp was elevated at 180/103. Repeat bp after a few minutes and it was coming down and headache seemed to be resolving. She denies nausea or RUQ pain. 09/13/19: We started magnesium bolus around 1600, 4 grams and then mag infusion at 2 grams/hour at 1700. She is feeling weak and tired and has noticed that her eyes don't seem to track well since the Mag was started. She denies any further headaches like yesterday, denies shortness of breath. REflexes have still been brisk with 1-2 beats of clonus. She is not nauseated, eating and drinking well. BP has been mostly 130's/90's and then last bp was 100 diastolic. She is and denies nipple pain and is feeling more comfortable. Vaginal bleeding is slowing. Functional Status: Reports: Pain Controlled, Tolerating Diet, Urinating - Review of Systems General: Reports: Weakness, Fatigue HEENT: Reports: Visual Changes (Feels like her eyes don't focus well. ) Pulmonary: Reports: No Symptoms Cardiovascular: Reports: No Symptoms Gastrointestinal: Reports: No Symptoms Genitourinary: Reports: No Symptoms Musculoskeletal: Reports: No Symptoms Skin: Reports: No Symptoms Neurological: Reports: No Symptoms Psychiatric: Reports: No Symptoms - General Info Date of Service: 09/13/19 - Patient Data Vital Signs - Most Recent: Last Vital Signs Temp 36.8 C 09/13/19 08:07 Pulse 93 09/13/19 09:42 Resp 16 09/13/19 09:00 BP 138/100 H 09/13/19 11:05 Pulse Ox 97 09/13/19 09:42 Weight - Most Recent: 68.175 kg I&O - Last 24 Hours: Intake & Output 09/12/19 09/13/19 09/13/19 22:59 06:59 14:59 Output Total 5483 396 4764 Balance -1350 -800 -1400 Lab Results - Last 24 Hours: Laboratory Results - last 24 hr 09/12/19 09/12/19 Range/Units 17:15 17:15 WBC 11.37 H (3.98-10.04) K/mm3 RBC 4.16 (3.98-5.22) M/mm3 Hgb 12.1 (11.2-15.7) gm/dl Hct 37.5 (34.1-44.9) % MCV 90.1 (79.4-94.8) fl MCH 29.1 (25.6-32.2) pg MCHC 32.3 (32.2-35.5) g/dl RDW Std Deviation 47.0 H (36.4-46.3) fL Plt Count 162 L (182-369) K/mm3 MPV 13.5 H (9.4-12.3) fl Sodium 137 (136-145) mEq/L Potassium 3.5 (3.5-5.1) mEq/L Chloride 104 (98-107) mEq/L Carbon Dioxide 21 (21-32) mEq/L Anion Gap 15.5 H (5-15) BUN 10 (7-18) mg/dL Creatinine 0.6 (0.55-1.02) mg/dL Est Cr Clr Drug Dosing 141.81 mL/min Estimated GFR (MDRD) > 60 (>60) mL/min BUN/Creatinine Ratio 16.7 (14-18) Glucose 90 (74-106) mg/dL Calcium 8.3 L (8.5-10.1) mg/dL Total Bilirubin 0.2 (0.2-1.0) mg/dL AST 34 (15-37) U/L ALT 18 (14-59) U/L Alkaline Phosphatase 177 H (46-116) U/L Total Protein 5.7 L (6.4-8.2) g/dl Albumin 2.1 L (3.4-5.0) g/dl Globulin 3.6 gm/dL Albumin/Globulin Ratio 0.6 L (1-2) Med Orders - Current: Current Medications Benzocaine/Menthol (Dermoplast Pain Relief [place]) 0 gm TOP ASDIRECTED PRN PRN Reason: Perineal Comfort Measure Last Admin: 09/11/19 23:45 Dose: 1 applic Documented by: Calcium Gluconate (Calcium Gluconate) 1 gm IV ASDIRECTED PRN PRN Reason: respiratory distress Docusate Sodium (Colace) 100 mg PO BID PRN PRN Reason: Constipation Hydrocortisone Acetate (Anucort-Hc) 25 mg RECTAL BID PRN PRN Reason: Hemorrhoid pain Oxytocin/Lactated Ringer's (Pitocin In Lr 10 Units/1,000 Ml) 10 unit in 1,000 mls @ 100 mls/hr IV .CONTINUOUS CATARINA; Protocol Last Admin: 09/11/19 21:12 Dose: 100 mls/hr Documented by: Lactated Ringer's (Ringers, Lactated) 1,000 mls @ 50 mls/hr IV ASDIRECTED CATARINA Last Admin: 09/13/19 04:52 Dose: 75 mls/hr Documented by: Magnesium Sulfate (Magnesium Sulfate In Water Premix) 40 gm in 1,000 mls @ 50 mls/hr IV ASDIRECTED CATARINA Last Admin: 09/13/19 11:34 Dose: 50 mls/hr Documented by: Ibuprofen (Motrin) 800 mg PO Q6H PRN PRN Reason: Mild pain or fever Last Admin: 09/13/19 11:35 Dose: 800 mg Documented by: Ondansetron HCl (Zofran) 4 mg IVPUSH Q4H PRN PRN Reason: Nausea/Vomiting Prenat Multivit/Professional Architect/Iron/Folic Ac ( Plus Iron) 1 each PO DAILY CATARINA Last Admin: 09/13/19 08:07 Dose: 1 each Documented by: Sodium Chloride (Saline Flush) 10 ml FLUSH ASDIRECTED PRN PRN Reason: Keep Vein Open Witch Jaz (Tucks) 1 pad TOP ASDIRECTED PRN PRN Reason: Perineal Comfort Measure Last Admin: 09/11/19 23:45 Dose: 1 pad Documented by: Discontinued Medications Acetaminophen (Tylenol) 650 mg PO Q4H PRN PRN Reason: Pain (Mild 1-3) and fever Calcium Carbonate/Glycine (Tums) 1,000 mg PO Q2H PRN PRN Reason: Indigestion Oxytocin/Lactated Ringer's (Pitocin In Lr 10 Units/1,000 Ml) 10 unit in 1,000 mls @ 12 mls/hr IV TITRATE CATARINA; Protocol Lactated Ringer's (Ringers, Lactated) 1,000 mls @ 100 mls/hr IV ASDIRECTED CATARINA Magnesium Sulfate 4 gm/ Premix 50 mls @ 150 mls/hr IV ONETIME ONE Stop: 09/12/19 16:27 Last Admin: 09/12/19 16:36 Dose: 150 mls/hr Documented by: Lidocaine HCl (Xylocaine 1%) 50 ml INJECT ONETIME ONE Stop: 09/11/19 19:01 Last Admin: 09/11/19 21:52 Dose: 50 ml Documented by: Nalbuphine HCl (Nubain) 10 mg IVPUSH Q2H PRN PRN Reason: Pain Last Admin: 09/11/19 20:32 Dose: 10 mg Documented by: Sodium Chloride (Saline Flush) 10 ml FLUSH ASDIRECTED PRN PRN Reason: Keep Vein Open - Infant Interaction Infant Disposition, : [place] at Bedside Interaction: Holding Infant Feeding: Breastfed ; Nursed Well (sutures from perineal tear intact) Support Person: - Recovery Exam Fundal Tone: Firm Fundal Level: 1 Fingerbreadths Below Umbilicus Fundal Placement: Midline Lochia Amount: Small Lochia Color: Rubra/Red Perineum Description: Other (see below) Other Perinuem Description: second degree laceration with repair Episiotomy/Laceration: Approximated Bladder Status: Voiding Urinary Elimination: Voided - Exam General: Alert, Oriented, Cooperative, No Acute Distress HEENT: Pupils Equal, Mucous Membr. Moist/[place] Neck: Supple Lungs: Clear to Auscultation, Normal Respiratory Effort Cardiovascular: Regular Rate, Regular Rhythm GI/Abdominal Exam: Normal Bowel Sounds, Soft Extremities: Normal Inspection, Pedal Edema (trace pitting in feet) Skin: Warm, Dry, Intact Wound/Incisions: Healing Well Neurological: No New Focal Deficit, Reflexes Equal Bilateral (Reflexes brisk with 2 beats of clonus bilaterally.) Psy/Mental Status: Alert, Normal Affect, Normal Mood - Problem List & Annotations (1) 37 weeks gestation of SNOMED Code(s): 10487128 Code(s): Z3A.37 - 37 WEEKS GESTATION OF Status: Acute Current Visit: Yes (2) Preeclampsia SNOMED Code(s): 385829137 Code(s): O14.90 - UNSPECIFIED PRE-ECLAMPSIA, UNSPECIFIED TRIMESTER Status: Acute Current Visit: Yes (3) Environmental allergies SNOMED Code(s): 789712181 Code(s): Z91.09 - OTH ALLERGY STATUS, OTH THAN TO DRUGS AND BIOLG SUBSTANCES Status: Acute Current Visit: Yes (4) Normal spontaneous vaginal delivery SNOMED Code(s): 39197817, 086096135 Code(s): O80 - ENCOUNTER FOR FULL-TERM UNCOMPLICATED DELIVERY Status: Acute Current Visit: Yes (5) Preeclampsia in period SNOMED Code(s): 092325520, 603955181 Code(s): O14.95 - UNSPECIFIED PRE-ECLAMPSIA, COMPLICATING THE PUERPERIUM Status: Acute Current Visit: Yes - Problem List Review Problem List Initiated/Reviewed/Updated: Yes - My Orders Last 24 Hours: My Active Orders 09/12/19 16:08 Bedrest [RC] ASDIRECTED Communication Order [RC] ASDIRECTED Notify Provider [RC] ASDIRECTED Oxygen Therapy [RC] PRN Vital Signs [RC] ASDIRECTED Calcium Gluconate 1 gm IV ASDIRECTED PRN Sodium Chloride 0.9% [Saline Flush] 10 ml FLUSH ASDIRECTED PRN Peripheral IV Insertion Adult [OM.PC] Urgent 09/12/19 16:09 Equipment to Bedside [RC] PRN Notify Provider Vital Signs [RC] ASDIRECTED 09/12/19 16:10 Notify Provider Status Change [RC] ASDIRECTED Peripheral IV Care [RC] . DIRECTED 09/12/19 16:13 Intake and Output [RC] Q2HR Seizure Precautions [OM.PC] Per Unit Routine 09/12/19 16:15 Lactated Ringers [Ringers, Lactated] 1,000 ml IV ASDIRECTED Magnesium Sulfate/Water [Magnesium Sulfate in Water Premix] 40 gm in 1,000 ml IV ASDIRECTED Blood Pressure [OM.PC] ASDIRECTED Deep Tendon Reflexes [WOMSER] ASDIRECTED 09/12/19 22:40 Heat Therapy [OM.PC] PRN 09/13/19 13:23 CBC W/O DIFF,HEMOGRAM [HEME] Stat CMP [COMPREHENSIVE METABOLIC PN,CMP] [CHEM] Stat - Assessment Assessment:: at 37 weeks with onset of preeclampsia, delivered after augmentation of labor. with 2nd degree perineal tear. Routine care. Monitor bp for persistent preeclampsia. Mom plans to breastfeed - provide support and education. 09/12/19 1600: Patient has had increased bp as high as 180/103 and complaints of severe headache. Brisk reflexes. preeclampsia. - seems to be going well, but baby has gone 4 hours between feedings. She is not sure if she is hearing baby swallow course wnl, continue education 09/13/19 13:45 Feeling weak with magnesium infusion and some difficulties with eye focusing. well, and getting more comfortable. BP has been mildly elevated but one high reading this afternoon. - Plan Plan:: Day #1 09/12/19 1600 preeclampsia - elevated bp persists, has had a headache this a fternoon with brisk reflexes on exam. Will check CBC and CMP today. Start Magnesium for seizure prevention. Give 4 gram loading bolus and then run 2 grams per hour. Monitor per protocol. Will plan to continue for 24 hours and then d/c and monitor for another 24 hours before discharge. Will monitor bp and plan to start medicine if persists >160/110. - asked CLC to check on her and observe nursing. Continue support and education. day #2 09/13/19 1345 preeclampsia - will repeat CBC and CMP today, check bp every 2 hours, continue Mag infusion, consider starting to wean and discontinue at 24 hours. Continue bp monitoring for 24 hours after stopping mag infusion and then discussed home bp monitoring as well. - continue education and support. Nipples intact. Routine care, flow is settling
[2019-09-14 13:44] VITALS: BP 139/94; PULSE 86
[2019-09-14] MEDS: Prenatal Multivitamin with Calcium/Folic Acid/Iron Tab PO SCH (13:46)
--- NOTE | 2019-09-14 16:56 | PCM.DCSUM1 ---
Discharge Summary - Hospital Course Free Text/Narrative:: 24 year old at 37 weeks gestation was seen in the clinic on 09/11/19 and reported that she was having painful tightenings the night before for about an hour and then they seemed to settle, but didn't sleep well taht night. She has had increased allergy symptoms with nasal congestion, sinus pressure. She had taken benadryl that night for the allergy symptoms. Her bp in the clinic on 09/11/19 was elevated, 143/96, which is new for her. She had also noticed increased swelling in her feet. Denies headache, some nausea, but no RUQ pain. When I examined her in the clinic, she was 5-6 cm dilated, 80% effaced and bulging membranes with vertex presentation. I sent her over to Labor and Delivery for monitoring. She has had mild anemia with her , has been treated for bacterial vaginosis. She has declined Tdap and Influenza vaccine with her and does NOT plan to immunize her baby. labs show blood type A+ with negative antibody screen, pap was wnl, infectious disease screening tests negative. 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 MSAFP test for NTD was negative. 1 hour glucola was wnl. GBS swab was negative last week. She was only having very irregular contractions, but were moderate when they did come. She had a few contractions that lasted for 5 minutes. When I checked her at 1845, cervix was still 5-6 cm dilated, 80% effaced, vertex and station -1. Her bp has continued to be elevated, 140-150/90/100 and urine protein to creatinine ratio was positive. Platelets were a bit low but liver enzymes normal. Reflexes normal. AROM was performed to augment labor due to her preeclampsia. Contractions increased after that and she did receive Nubain dose at 2030. She started feeling some pressure about 2100 and she was 9 cm and they called me back in. When I arrived and checked her she was completely dilated. WE got her set up and started pushing at 2130. She did well and head was delivered from ELOY presentation, no nuchal cord. The rest of the baby delivered without problems. Time of delivery was 2143 and baby girl. She was dried and stimulated and she cried immediately. She was placed on mother's abdomen for further drying, suctioning and stimulation. After the cord stopped pulsating, it was clamped and cut and baby was placed skin to skin on mother's chest. Her weight was 7 lb 1 oz, 3200 grams. Placenta delivered spontaneously and there we re 3 vessels in the cord. EBL was 100 ml. There was a second degree perineal laceration that was repaired in the usual manner with 3-0 vicryl. Uterus was firm and 2 fingers below U. Both Mom and baby were left in the delivery room in stable condition. Mom plans to breastfeed. On the afternoon of 09/12/19 she started complaining of a severe headache and her bp was elevated 180/103 and brisk reflexes. We started her on Magnesium sulfate, 4 gram IV loading dose and then 2 grams an hour. Her blood pressures settled to 140/90 range and her headache resolved, but she felt weak and had trouble focusing with the Mag. She denies any SOB and reflexes continued to be brisk. Repeat PIH labs were stable. On 09/13/19 she was starting to feel better, no further headaches, nausea or abdominal pain. BP at times would be 120/70, other times still 140's/90's. No further severely elevated bp's. We stopped her Mag at 24 hours and she did well overnight. PIH labs today still stable, bp have been mildly elevated and denies other symptoms. She has been and feeling more comfortable with that. Feels breasts are filling, denies nipple pain. Bleeding is slowing. Diagnosis: Stroke: No Modified Mccall Scale: No Symptoms at All Modified Mccall Scale Score: 0 - Discharge Data Discharge Date: 09/14/19 Discharge Disposition: Home, Self-Care 01 Condition: Good - Referral to Home Health Primary Care Physician: Florecita Becker MD - Discharge Diagnosis/Problem(s) (1) 37 weeks gestation of SNOMED Code(s): 32977057 ICD Code: Z3A.37 - 37 WEEKS GESTATION OF Status: Acute (2) Preeclampsia SNOMED Code(s): 158810330 ICD Code: O14.90 - UNSPECIFIED PRE-ECLAMPSIA, UNSPECIFIED TRIMESTER Status: Acute (3) Environmental allergies SNOMED Code(s): 139730336 ICD Code: Z91.09 - OTH ALLERGY STATUS, OTH THAN TO DRUGS AND BIOLG SUBSTANCES Status: Acute (4) Normal spontaneous vaginal delivery SNOMED Code(s): 79409700, 185635933 ICD Code: O80 - ENCOUNTER FOR FULL-TERM UNCOMPLICATED DELIVERY Status: Acute (5) Preeclampsia in period SNOMED Code(s): 689162673, 125102996 ICD Code: O14.95 - UNSPECIFIED PRE-ECLAMPSIA, COMPLICATING THE PUERPERIUM Status: Acute - Patient Instructions Diet: Usual Diet as Tolerated, Drink 8-10+ Glasses/Day Feeding Instructions: Feed on demand, or try at least every 2-3 hours. Until your milk comes in, supplement with 10-15 ml of formula with syringe after if baby is still acting hungry. Once your milk comes in, you should not need to do that. Activity: As Tolerated, No Strenuous Activities Driving: May Drive Today Showering/Bathing: May Shower Notify Provider of: Fever, Increased Pain, Swelling and Redness, Drainage, Nausea and/or Vomiting - Discharge Plan *PRESCRIPTION DRUG MONITORING PROGRAM REVIEWED*: Not Applicable *COPY OF PRESCRIPTION DRUG MONITORING REPORT IN PATIENT ANGELO: Not Applicable Home Medications: Home Meds Pnv No.95/Ferrous Fum/Folic AC [ Caplet] 1 tab PO DAILY 04/11/19 [History] Ferrous Sulfate [Iron] 325 mg PO DAILY 09/11/19 [History] Melatonin 10 mg PO QPM PRN 09/11/19 [History] Benzocaine/Menthol [Dermoplast Pain Relief [place]] 1 applic TOP ASDIRECTED PRN canister 09/14/19 [Rx] Docusate Sodium [Colace] 100 mg PO BID PRN cap 09/14/19 [Rx] Ibuprofen [Motrin] 800 mg PO Q6H PRN tablet 09/14/19 [Rx] witch Jaz [Tucks] 1 pad TOP ASDIRECTED PRN pad 09/14/19 [Rx] Oxygen Therapy Mode: Room Air Patient Handouts: Preeclampsia and Eclampsia, Rooming-In With Your [place], Breast Pumping Tips, and Self-Care, Hypertension, Care After Vaginal Delivery Referrals: Florecita Becker MD [Primary Care Provider] - - Discharge Summary/Plan Comment DC Time >30 min.: No Discharge Summary/Plan Comment: 24 year old primip at 37 weeks was diagnosed with preeclampsia and had spontaneous labor that was augmented with AROM. She did not have an epidural, just 1 dose of Nubain IV. She delivered vaginally and did well with delivery. Her bp spiked up and she developed a severe headache and was noted to have brisk reflexes, so was started on Magnesium Sulfate IV on 09/11/21 evening. PIH labs were stable, headache resolved and bp readings were running 125-145/70-100. Mag was stopped at 24 hours, the evening of 09/13/19 and she has remained stable overnight. She will be discharged with instructions to monitor bp twice daily at home and notify us if she develops symptoms of severe preeclampsia. I will follow up with her in the clinic tomorrow and again next week. has been going well, will continue to breastfeed on demand. Discussed engorgement and what to do. Normal course for bleeding and cramping. Using occasional ibuprofen and bleeding is settling. Will do a visit at 6 weeks, but will be following closely for the preeclampsia. - General Info Date of Service: 09/14/19 Admission Dx/Problem (Free Text: Patient Status Order with Admit Dx/Problem 09/11/19 14:11 Patient Status [ADT] Routine 09/11/19 14:27 Patient Status [ADT] Stat Admission Diagnosis/Problem Admission Diagnosis/Problem 09/11/19 18:49 Preeclampsia Early labor Subjective Update: Patient was doing well this am. Baby had nursed a couple of times. Bleeding is moderate, no clots. She complains of perineal pain and some cramping, using ibuprofen for relief. This afternoon, nursing called with report that she was complaining of a severe headache that started all of a sudden and her bp was elevated at 180/103. Repeat bp after a few minutes and it was coming down and headache seemed to be resolving. She denies nausea or RUQ pain. 09/13/19: We started magnesium bolus around 1600, 4 grams and then mag infusion at 2 grams/hour at 1700. She is feeling weak and tired and has noticed that her eyes don't seem to track well since the Mag was started. She denies any further headaches like yesterday, denies shortness of breath. REflexes have still been brisk with 1-2 beats of clonus. She is not nauseated, eating and drinking well. BP has been mostly 130's/90's and then last bp was 100 diastolic. She is and denies nipple pain and is feeling more comfortable. Vaginal bleeding is slowing. 09/14/19: Magnesium was stopped on 09/13/19 evening and she has been stable overnight. BP overnight was very good, 120-136/84-87, but had a couple more elevated readings this am in the 140's/90's. Reflexes still brisk today. going well. She has started doing some formula supplementation until her milk comes in because baby's weight is down 9.4% from . Functional Status: Reports: Pain Controlled, Tolerating Diet, Ambulating, Urinating - Review of Systems General: Reports: No Symptoms HEENT: Reports: Sinus Congestion Pulmonary: Reports: No Symptoms Cardiovascular: Reports: Edema Gastrointestinal: Reports: No Symptoms Genitourinary: Reports: No Symptoms Musculoskeletal: Reports: No Symptoms Skin: Reports: No Symptoms Neurological: Reports: No Symptoms Psychiatric: Reports: No Symptoms - Patient Data Vitals - Most Recent: Last Vital Signs Temp 37.1 C 09/14/19 08:09 Pulse 86 09/14/19 08:10 Resp 11 L 09/14/19 08:09 BP 139/94 H 09/14/19 08:09 Pulse Ox 98 09/14/19 08:10 Weight - Most Recent: 68.175 kg I&O - Last 24 hours: Intake & Output 09/14/19 09/14/19 09/14/19 06:59 14:59 22:59 Intake Total 360 Balance 360 Med Orders - Current: Current Medications Discontinued Medications Acetaminophen (Tylenol) 650 mg PO Q4H PRN PRN Reason: Pain (Mild 1-3) and fever Benzocaine/Menthol (Dermoplast Pain Relief [place]) 0 gm TOP ASDIRECTED PRN PRN Reason: Perineal Comfort Measure Last Admin: 09/11/19 23:45 Dose: 1 applic Documented by: Calcium Carbonate/Glycine (Tums) 1,000 mg PO Q2H PRN PRN Reason: Indigestion Calcium Gluconate (Calcium Gluconate) 1 gm IV ASDIRECTED PRN PRN Reason: respiratory distress Docusate Sodium (Colace) 100 mg PO BID PRN PRN Reason: Constipation Hydrocortisone Acetate (Anucort-Hc) 25 mg RECTAL BID PRN PRN Reason: Hemorrhoid pain Oxytocin/Lactated Ringer's (Pitocin In Lr 10 Units/1,000 Ml) 10 unit in 1,000 mls @ 12 mls/hr IV TITRATE CAT[place]INA; Protocol Oxytocin/Lactated Ringer's (Pitocin In Lr 10 Units/1,000 Ml) 10 unit in 1,000 mls @ 100 mls/hr IV .CONTINUOUS CAT[place]; Protocol Last Admin: 09/11/19 21:12 Dose: 100 mls/hr Documented by: Lactated Ringer's (Ringers, Lactated) 1,000 mls @ 100 mls/hr IV ASDIRECTED [place] Lactated Ringer's (Ringers, Lactated) 1,000 mls @ 50 mls/hr IV ASDIRECTED [place] Last Admin: 09/13/19 04:52 Dose: 75 mls/hr Documented by: Magnesium Sulfate 4 gm/ Premix 50 mls @ 150 mls/hr IV ONETIME ONE Stop: 09/12/19 16:27 Last Admin: 09/12/19 16:36 Dose: 150 mls/hr Documented by: Magnesium Sulfate (Magnesium Sulfate In Water Premix) 40 gm in 1,000 mls @ 50 mls/hr IV ASDIRECTED CAT[place] Last Infusion: 09/13/19 17:15 Dose: 10 mls/hr Documented by: Ibuprofen (Motrin) 800 mg PO Q6H PRN PRN Reason: Mild pain or fever Last Admin: 09/13/19 11:35 Dose: 800 mg Documented by: Lidocaine HCl (Xylocaine 1%) 50 ml INJECT ONETIME ONE Stop: 09/11/19 19:01 Last Admin: 09/11/19 21:52 Dose: 50 ml Documented by: Nalbuphine HCl (Nubain) 10 mg IVPUSH Q2H PRN PRN Reason: Pain Last Admin: 09/11/19 20:32 Dose: 10 mg Documented by: Ondansetron HCl (Zofran) 4 mg IVPUSH Q4H PRN PRN Reason: Nausea/Vomiting Prenat Multivit/Price/Iron/Folic Ac ( Plus Iron) 1 each PO DAILY [place] Last Admin: 09/14/19 13:46 Dose: Not Given Documented by: Sodium Chloride (Saline Flush) 10 ml FLUSH ASDIRECTED PRN PRN Reason: Keep Vein Open Sodium Chloride (Saline Flush) 10 ml FLUSH ASDIRECTED PRN PRN Reason: Keep Vein Open Witch Jaz (Tucks) 1 pad TOP ASDIRECTED PRN PRN Reason: Perineal Comfort Measure Last Admin: 09/11/19 23:45 Dose: 1 pad Documented by: - Exam General: Reports: Alert, Oriented, Cooperative, No Acute Distress HEENT: Reports: Pupils Equal, Mucous Membr. Moist/[place] Neck: Reports: Supple, Trachea Midline Lungs: Reports: Normal Respiratory Effort Cardiovascular: Reports: Regular Rate, Regular Rhythm GI/Abdominal Exam: Normal Bowel Sounds, No Distention (Female) Exam: Enlarged Uterus (2 fingers below U), Vaginal Bleeding, Vaginal Tears (sutures intact) Rectal (Female) Exam: Deferred Back Exam: Reports: Normal Inspection, Full Range of Motion Extremities: Normal Range of Motion, Non-Tender, Pedal Edema Skin: Reports: Warm, Dry, Intact Wound/Incisions: Reports: Healing Well Neurological: Reports: Reflexes Equal Bilateral (4+ reflexes with 1 beat clonus) Psy/Mental Status: Reports: Alert, Normal Affect, Normal Mood
== END 2019-09-14 11:50 | disposition home or self-care (01) | DRG 560 ==
LOC: JD.OBCHECK 13:22 → JD.OB 13:23 → JD.OBCHECK 14:27 → JD.OB 14:28 → OBSVTOIN 21:44 → JD.OB 21:45
PROVIDERS: ADMIT Family Medicine; ATTEND Family Medicine
PROC: 10E0XZZ Delivery of Products of Conception, External Approach (ICD-10-PCS; principal; 2019-09-11)
PROC: 10907ZC Drainage of Amniotic Fluid, Therapeutic from Products of Conception, Via Natural or Artificial Opening (ICD-10-PCS; 2019-09-11)
PROC: 0KQM0ZZ Repair Perineum Muscle, Open Approach (ICD-10-PCS; 2019-09-11)
DX: O14.04 Mild to moderate pre-eclampsia, complicating childbirth (principal); Z3A.37 37 weeks gestation of pregnancy; O99.12 Other diseases of the blood and blood-forming organs and certain disorders involving the immune mechanism complicating childbirth; Z11.59 Encounter for screening for other viral diseases; D69.6 Thrombocytopenia, unspecified; O70.1 Second degree perineal laceration during delivery; O14.95 Unspecified pre-eclampsia, complicating the puerperium; O99.89 Other specified diseases and conditions complicating pregnancy, childbirth and the puerperium; R51 Headache; Z37.0 Single live birth; Z91.09 Other allergy status, other than to drugs and biological substances
CPT/HCPCS: 36415; 59025; 59409; 80053; 82570; 84156; 85025; 85027; 86592; A9270-GY; J2001; J2300; J2590; J3475; J7120; U0002

== ENCOUNTER 2022-03-25 01:30 | Inpatient (IN) | payer BC ==
[2022-03-25] MEDS ORDERED: Nalbuphine 10 MG/0.5 ML Syringe IVPUSH PRN (01:40)
[2022-03-25] MEDS ORDERED: Oxytocin/Lactated Ringers 10 UNIT/1,000 ML BAG IV SCH (01:45)
[2022-03-25] MEDS ORDERED: Lactated Ringers 1,000 ML IV SCH (01:45)
[2022-03-25] MEDS ORDERED: Witch Hazel Medicated Pads 40/Jar TOP PRN (03:30)
[2022-03-25] MEDS ORDERED: Acetaminophen 325 MG Tab PO PRN (03:30)
[2022-03-25] MEDS ORDERED: Benzocaine/Menthol 20%-0.5% Spray 78 GM Cannister TOP PRN (03:30)
[2022-03-25] MEDS ORDERED: Docusate Sodium 100 MG Cap PO PRN (03:30)
[2022-03-25] MEDS: Ibuprofen 600 MG Tab PO PRN ×2 (05:42→20:00)
[2022-03-25] MEDS ORDERED: Ondansetron 4 MG in Sodium Chloride 0.9% 50 ML IV ONE (05:52)
[2022-03-25] MEDS ORDERED: Ondansetron 4 MG/2 ML SDV IVPUSH ONE (06:00)
[2022-03-26] MEDS ORDERED: Measles, Mumps & Rubella Vaccine 0.5 ML SDV SUBCUT ONE (09:00)
[2022-03-26 09:21] VITALS: PULSE 79
[2022-03-26 09:32] VITALS: BP 160/90
== END 2022-03-26 10:15 | disposition home or self-care (01) | DRG 560 ==
LOC: JD.OBCHECK 01:30 → JD.OB 01:31 → JD.OBCHECK 01:39 → OBSVTOIN 02:04 → JD.OB 02:05
PROVIDERS: ADMIT Obstetrics & Gynecology; ATTEND Obstetrics & Gynecology
PROC: 10E0XZZ Delivery of Products of Conception, External Approach (ICD-10-PCS; principal; 2022-03-25)
DX: O14.05 Mild to moderate pre-eclampsia, complicating the puerperium (principal); Z3A.38 38 weeks gestation of pregnancy; Z37.0 Single live birth; O70.0 First degree perineal laceration during delivery
CPT/HCPCS: 36415; 51701; 59025; 59409; 82565; 82570; 83615; 84156; 84450; 84460; 84520; 84550; 85025; 86592; A9270-GY; J2405; J2590

== ENCOUNTER 2024-03-04 23:33 | Emergency (ER) | payer OTHER ==
[2024-03-05 00:08] VITALS: BP 123/71; PULSE 86
[2024-03-05 00:15] LABS: BASOPHILS ABSOLUTE AUTO 0.1 K/mm3 (0.0-0.2); BASOPHILS PERCENT AUTO 0.3 % (0.0-1.0); EOSINOPHILS ABSOLUTE AUTO 0.1 K/mm3 (0.0-0.4); EOSINOPHILS PERCENT AUTO 0.5 % (0.0-6.0); HEMATOCRIT 38.7 % (37.0-47.0); HEMOGLOBIN 13.3 gm/dl (12.0-16.0); IMMATURE GRAN ABSOLUTE AUTO 0.07 K/mm3 (0.00-0.05); IMMATURE GRAN PERCENT AUTO 0.4 % (0.0-0.4); LYMPHOCYTES ABSOLUTE AUTO 2.5 K/mm3 (1.0-4.8); LYMPHOCYTES PERCENT AUTO 14.5 % (24.0-44.0); MEAN CORPUSCULAR HEMOGLOBIN 29.7 pg (28.0-32.0); MEAN CORPUSCULAR HGB CONC 34.4 g/dl (32.0-36.0); MEAN CORPUSCULAR VOLUME 86.4 fl (83.0-99.0); MEAN PLATELET VOLUME 12.3 fl (9.4-12.3); MONOCYTES ABSOLUTE AUTO 0.9 K/mm3 (0.0-0.8); MONOCYTES PERCENT AUTO 5.1 % (0.0-8.0); NEUTROPHILS ABSOLUTE AUTO 13.9 K/mm3 (1.8-7.7); NEUTROPHILS PERCENT AUTO 79.2 % (41.0-71.0); PLATELET COUNT,PLT 221 K/mm3 (150-400); RED BLOOD CELL COUNT 4.48 M/mm3 (4.10-5.30); WHITE BLOOD CELL COUNT,WBC 17.52 K/mm3 (3.9-11.3)
[2024-03-05 00:16] LABS: APPEARANCE,URINE CLEAR (Clear); BILIRUBIN,URINE NEGATIVE (Negative); COLOR,URINE LIGHT YELLOW (Yellow); GLUCOSE,URINE NEGATIVE (Negative); KETONES,URINE NEGATIVE (Negative); LEUKOCYTE ESTERASE,URINE NEGATIVE (Negative); NITRITE,URINE NEGATIVE (Negative); OCCULT BLOOD,URINE NEGATIVE (Negative); PROTEIN,URINE NEGATIVE (Negative)
[2024-03-05 00:30] LABS: LACTIC ACID 0.9 mmol/L (0.4-2.0)
[2024-03-05 00:37] LABS: A/G RATIO 1.4 (1-2); ANION GAP 14.3 (5-15); BILIRUBIN TOTAL 0.3 mg/dL (0.2-1.0); BUN/CREATININE RATIO 21.7 (14-18); CALCIUM 8.4 mg/dL (8.5-10.1); CREATININE 0.6 mg/dL (0.55-1.02); EST CRCL DRUG DOSING (CG) 135.64 mL/min; POTASSIUM,K 3.3 mEq/L (3.5-5.1); PROTEIN TOTAL,TP 6.9 g/dl (6.4-8.2)
[2024-03-05] MEDS: Sodium Chloride 0.9% 10 ML Syringe FLUSH ONE (01:24)
[2024-03-05] MEDS: Iopamidol 612 MG/ML 100 ML Bottle IVPUSH ONE (01:24)
== END 2024-03-05 02:13 | disposition home or self-care (01) ==
LOC: JD.ED 23:33
DX: R10.11 Right upper quadrant pain (principal); Z90.89 Acquired absence of other organs; Z79.899 Other long term (current) drug therapy
CPT/HCPCS: 36415; 74177; 80053; 81003; 83605; 84703; 85025; 99284; Q9967; 99283